=== PATIENT | female | born 1990 | race Caucasian/White ===

== ENCOUNTER 2018-09-18 07:15 | Inpatient (IN) | payer MEDICAID, SELFPAY ==
[2018-09-18 07:58] VITALS: BMI 25.2
[2018-09-18] MEDS: Lactated Ringers 1,000 ML 50 ML IV ×2 (08:15→11:34)
[2018-09-18 08:44] LABS: Hematocrit 37.5 % (37-47); Hemoglobin 12.5 g/dl (12.0-15.0); Mean Corp Hgb Conc 33.3 g/gl (32-36); Mean Corpuscular Hgb 30.1 pg (27.0-32.0); Mean Corpuscular Volume 90.4 fL (81-99); Mean Platelet Vol. 10.8 fl (6.2-12.0); Platelet Count 317 K/mm3 (150-450); RBC Distribution Width SD 45.2 fl (35.1-43.9); Red Blood Count 4.15 M/mm3 (4.2-5.4); White Blood Count 9.6 K/mm3 (4.4-11.0)
[2018-09-18 08:45] LABS: Scan Indicated on CBC? Y/N NO
--- NOTE | 2018-09-18 08:50 | HP.PCM_ITS ---
History Date of Admission: 09/18/18 Final HARPER: 09/25/18 Gestational age: 39 Weeks and 0 Days History of this : This is a 28 year-old, G [], P [], at 38 weeks gestational age. Allergies bupropion [From Wellbutrin] Allergy (Verified 09/18/18 08:03) Hives Home Medications: Home Medications Buprenorphine HCl/Naloxone HCl [Suboxone 8 mg-2 mg Sl Film] 8 mg DAILY 09/18/18 Folic Acid 800 mcg PO DAILY 09/18/18 Smoking Status: Current every day smoker Substance Use Type: Amphetamines Heart Tracin with mod variability, accels TOCO Analysis: irregular History Past Pregnancies: Past Pregnancies Delivery Date Name GA/Weeks Outcome Route Weight Gender Labor Length Anesthesia Delivery Location Provider FOB Labs: See [facility] H[facility]P Physical Exam General: Alert, Oriented x3 Abdomen: Soft, Non Tender, Non-Distended, Gravid SOLAR DESIGNER: Normal external genitalia Estimated gestational size: Appropriate for gestational size Cervix Dilation (cm): 3 - AROM clear fluid Station: -2 Effacement (%): 70 Assessment/Plan This is a 28 year-old at 39 weeks gestational age. Admit to L&D Pain - epidural Polyhydramnios - s/p AROM, on pitocin GBS negative On subutex for h/o heroin abuse
[2018-09-18] MEDS: Oxytocin 30 units/NS 500 ml 30 UNITS/500 ML IV.SOLN IV (09:05)
[2018-09-18 09:15] LABS: Amphetamine Urine VISTA NEGATIVE (<1000 ng/mL); Barbiturate Urine VISTA NEGATIVE (< 200 ng/mL); Benzodiazepine Urine VISTA NEGATIVE (< 200 ng/mL); Cocaine Urine VISTA NEGATIVE (< 300 ng/mL); Ecstacy Urine VISTA NEGATIVE (< 500 ng/mL); Methadone Urine VISTA NEGATIVE (< 300 ng/mL); PCP Urine VISTA NEGATIVE (< 25 ng/mL); THC Urine VISTA NEGATIVE (< 50 ng/mL); Vista UDS pH Range 5
[2018-09-18] MEDS: fentaNYL-bupivacaine (epidural) 100 ML BAG EPIDURAL (11:47)
--- NOTE | 2018-09-18 13:23 | PCM.OB.VAG ---
Vaginal Delivery Maternal Presentation: Medically Indicated Induction Method of Induction: Pitocin, Amniotomy Medical Reason for Induction: - - Polyhydramnios Amniotic Membrane Rupture Type: Artificial Amniotic Fluid Description: Clear Final HARPER: 09/25/18 Gestational age: 39 Weeks and 0 Days Date of Procedure: 09/18/18 Pre-Operative Diagnosis: Polyhydramnios Post-Operative Diagnosis: Same Surgery/ Procedure Performed: Spontaneous Vaginal Delivery Type of Anesthesia: Epidural Description of Procedure: Patient prepped & draped when c/c/+1. She pushed well to deliver head. Head gently guided to allow delivery of anterior & posterior shoulders. No excess traction placed on the head. Body delivered easily & placed on maternal abdomen. 3vc clamped & cut in delayed fashion. Placenta delivered with gentle traction & good uterine tone obtained. Presentation: Vertex, LILIANA Placental Delivery Description: Expressed Placenta Disposition: [facility] Cord Vessel Description: 3 Vessels Cord Entanglement: None Estimated Blood Loss: 250ml Infant A gender: Male (1 minute): 8 (5 minute): 9 Episiotomy Description: None Laceration: None Medications given after delivery: IV Pitocin Complications: None
[2018-09-18] MEDS: Oxytocin 30 units/NS 500 ml 30 UNITS/500 ML IV.SOLN 334 UNITS IV (13:58)
[2018-09-18] MEDS: Oxytocin 30 units/NS 500 ml 30 UNITS/500 ML IV.SOLN 167 UNITS IV (14:28)
[2018-09-18] MEDS: 0.9% Saline Lock 10 ML Syringe IV (15:32)
[2018-09-18 19:45] VITALS: BP 129/79; PULSE 75; RESP 16; TEMP 36.5; O2SAT 100
--- NOTE | 2018-09-18 20:05 | NURSING ---
1953 This RN and JINA Wills verified 4 pills of Subutex in pt own pill container. This container taken to pharmacy at this time by this RN for verification, d/t hospital not carrying this med.
[2018-09-18] MEDS: BUPRENORPHINE HCL 8 MG TAB.SUBL 4 MG SL (21:30)
[2018-09-19 00:05] VITALS: BP 110/60; PULSE 87; RESP 16; TEMP 37.2; O2SAT 98
[2018-09-19] MEDS: Acetaminophen 500 MG Tablet 1000 MG PO (03:52)
[2018-09-19 04:00] VITALS: BP 116/72; PULSE 70; RESP 16; TEMP 37; O2SAT 96
--- NOTE | 2018-09-19 07:52 | PCM.PN.OB ---
Subjective: No complaints - Physical Exam General: Alert, Oriented x3 Abdomen: Soft, Non Tender, Non-Distended - ff mid & below umb Extremities: No Calf Tenderness Vital Signs Temp Pulse Resp BP Pulse Ox 98.6 F 70 16 116/72 96 09/19/18 04:00 09/19/18 04:00 09/19/18 04:00 09/19/18 04:00 09/19/18 04:00 Oxygen Delivery Method Room Air Weight: 142 lb 6.698 oz Body Mass Index (BMI) 25.2 Intake and Output for Last 24 Hours 09/17/18 09/18/18 09/19/18 23:59 23:59 23:59 Intake Total 2816 / 2816 Output Total 2200 / 2200 Balance 616 / 616 Laboratory Tests Past 24 Hrs 09/18/18 09/18/18 09/18/18 08:20 08:20 08:20 WBC 9.6 RBC 4.15 L Hgb 12.5 Hct 37.5 MCV 90.4 MCH 30.1 MCHC 33.3 RDW 14.0 RDW Differential 45.2 H Plt Count 317 MPV 10.8 Urine Opiates Screen NEGATIVE Urine Methadone Screen NEGATIVE Ur Barbiturates Screen NEGATIVE Ur Phencyclidine Scrn NEGATIVE Ur Amphetamines Screen NEGATIVE U Methamphetamin-MDMA NEGATIVE U Benzodiazepines Scrn NEGATIVE Urine Cocaine Screen NEGATIVE U Cannabinoids Screen NEGATIVE Ur Drug Screen Comment Blood Type A NEGATIVE Antibody Screen NEGATIVE Screen Baby's Blood Type Baby's AYAH 09/18/18 16:07 WBC RBC Hgb Hct MCV MCH MCHC RDW RDW Differential Plt Count MPV Urine Opiates Screen Urine Methadone Screen Ur Barbiturates Screen Ur Phencyclidine Scrn Ur Amphetamines Screen U Methamphetamin-MDMA U Benzodiazepines Scrn Urine Cocaine Screen U Cannabinoids Screen Ur Drug Screen Comment Blood Type Antibody Screen Screen NEGATIVE Baby's Blood Type A POSITIVE Baby's AYAH NEGATIVE Medical Necessity - Tobacco Use Smoking Status: Current every day smoker Assessment/Plan PPD#1 Routine care H/o heroin abuse - continue subutex Social work consult
[2018-09-19 08:20] VITALS: BP 107/67; PULSE 79; RESP 16; TEMP 36.9
[2018-09-19] MEDS: BUPRENORPHINE HCL 8 MG TAB.SUBL 4 MG SL ×2 (09:12→20:23)
[2018-09-19 12:01] VITALS: BP 125/84; PULSE 80; RESP 16; TEMP 36.8
[2018-09-19] MEDS: Ibuprofen 600 MG Tablet PO (14:54)
[2018-09-19] MEDS: Senna/Docusate Sodium 1 Tablet PO (14:54)
--- NOTE | 2018-09-19 16:50 | CASEMGMT ---
Addendum entered and electronically signed by Ashanti Hector 09/22/18 11:29: Clarification of documentation - documented below a negative drug screen on 09.12.2018. This should read as 09.18.2018. Michelle Original Note: Social Work Assessment Labor and Delivery Unit Date of Referral: 09/18/2018 Time of Referral: [id number] Referred By: Dr. Serna Date of Intervention: 09/19/2018 Time of Intervention: 1650 Reason for Referral: maternal substance abuse History obtained from: medical records and patient/mother of baby (MOB) Brittnee Jackson Household composition: MOB, reported father of baby (FOB) Kareem Soto, and MOB?s 2 older children. FOB?s mother lives in the home, sleeps in the attic per MOB. MOB reports has lived with FOB for 1.5 years now. MOB reports home situation is safe and adequate. Patient's parent/guardian status: MOB (age 28) and FOB (age 29) have been together for 4 years. MOB denies any abuse by FOB. [place] baby is the first child for MOB and FOB together. FOB reportedly have 3 other children who do come over to visit every other weekend: Stephen is 12, Teresita is 8, and Regina is 6. MOB?s minor Children include (each have different paternity): [place] Chetan Soto, born 09.18.2018 Derik Jackson, born 10.08.2014 Angela Subramanian, born 04.13.2011 Medical History: MOB is G3, P2 to 3 after delivering baby reno Benton. From chart review, care visits appearing to have occurred at 10 (february) to establish care, then at 13 (March), 17, 19, 23, and 35 weeks; gap in care between 23-35 weeks. MOB reports there were a few times that missed some appointments mid . Chart indicates MOB with history of Hepatitis C that has resolved. Baby reno Benton was born at 38 weeks gestation, weighed 7 pounds 3 ounces, ?s 8 and 9. Educational Status: MOB has high school education. No reported issues reading, writing, or learning comprehension. Financial Status: FOB works at [employer] in [place], 7 am to 6 pm. Infant Supplies: MOB reports to have needed supplies including car seat, diapers, wipes, clothing, pack-n-play with bassinet attachment. Childcare/Caregiver(s): MOB is primary caregiver. 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 No reported issues with transportation. Programs/Agencies Involved: MOB reports medical through [facility]. MOB reports plan to get on WIC and agreed to information for [facility]. MOB reports current involvement with a counselor, Vesta, at [facility]. Children Services/Legal Issues: MOB denies legal issues. Denies any history of children services involvement, past or present. Behavioral Health Issues: Mental Health History: MOB with history of depression after of second child. Chart indicates diagnosis of depression in 2012. MOB reports was prescribed Lexapro during this but has not been taking as prescribed as felt this was not helping. MOB denies any history of suicidal thoughts, plans, intent or attempts. No reports of any thoughts of harm to others. Substance Use History: MOB reports an 8-month history of heroin use about 6 years ago. MOB reports Derik?s father influenced MOB, and this is how MOB started to use heroin. Chart indicates history of marijuana, but not in years. MOB reports use of Adderall during this when MOB did not know was , though this does not correlate as MOB had an OB visit at 10 weeks and then next visit at 13 weeks when MOB was positive. MOB reports the Adderall was not prescribed to MOB and that MOB used this due to needing some ?me time,? to be able to stay awake at night so that could have some time to self. MOB reports when MOB tested positive was the last time that MOB had used Adderall. MOB denies use of alcohol, marijuana, heroin, cocaine, meth, or nonprescribed pills other than the Adderall during this . MOB is a positive tobacco smoker during . Prescribed subutex 8mg during . Family History: Chart indicates MOB?s mother, father, and a maternal grandfather with history of alcohol abuse. MOB denies that FOB has any addiction issues. Maternal Treatment History: Reports current involvement with Vesta at [facility] but does not think this person has enough background in substance use, so may be looking for a new counselor. MOB not clear when last time visited with Vesta. MOB reports has been on medication assisted treatment for 6 years now with family practitioner Dr. Ballesteros out of [place]. MOB reports Subutex 8mg daily during this . MOB reports history of another counselor, Taylor, out of [place] that MOB did like, but that this counselor has been very busy. History of seeing Radha at [facility] about 6 years ago, will not go back to this agency due to MOB not liking something that Radha said to MOB when MOB was in active use. Drug Screens: Maternal drug screen positive for amphetamines at 13 weeks on 03.26.2018. MOB retested on 08.26.2018 and 09.12.18, both negative. Baby?s urine drug screen at delivery negative, Subutex screen is positive. Meconium is pending. KARINA: Baby is being scored for KARINA due to Subutex exposure in utero. Scores so far 0-3. Baby to be monitored 5-7 days. Family/Social Stressors: MOB with gap in care during the 3rd trimester. 2nd trimester use of nonprescribed Adderall, for which MOB indicated to use for some me time, not feeling like able to stay awake and have some time to self without use of this substance. Subutex for the last 6 years. MOB reports has been thinking of trying to get off the Subutex, as MOB reports this is also an addiction itself. MOB reports plan to work with Dr. Ballesteros on what to do, maybe look at inpatient to help MOB go off the Subutex. MOB with history of depression, not taking medication as prescribed and recommended; additionally, expressing that not happy with current mental health provider at [facility]. MOB reporting current stress in having to have an extended stay at the hospital for KARINA monitoring. MOB reports need to get home and get back to routine with other children. Support Systems: MOB reports MOB?s mother is a strong support for practical help with the kids and a friend named Sarah. MOB reports FOB is an emotional support. MOB identifies Dr. Ballesteros as supportive. ASSESSMENT: MOB cooperative with social work visit, answered questions, though defensive at the beginning of conversation as evidenced by MOB informing this typewriter ribbon winder that MOB and baby are doing well and will be going home tomorrow, despite this typewriter ribbon winder?s attempts at education on KARINA monitoring protocols. MOB also making comments about people ?judging? MOB for being on the Subutex for so long and comparing [facility]?s protocols to [facility] where Derik was born, that the other hospital let MOB and baby discharge in 2 days when MOB was on subutex at that time. Explored with MOB the comment about being judged by others, and MOB reports that does not feel [facility] staff as judging MOB, that just people in general who do not understand addiction. Addressed with MOB that different hospitals have different protocols and that [facility] is going off evidenced based treatment and knowledge of withdrawal timeframes, of protocols in place for safety and care of baby. As conversation went on MOB became less defensive and appeared to relax as voice tone was less tense, body posture relaxed. MOB?s mood anxious, affect constricted overall. MOB eye contact intense overall but did lessen by the end. By end of conversation MOB accepting of need to have extended stay for baby and expressed understanding that [facility] is addressing baby?s needs. MOB reports that does want to go home to other children but understands why protocols are in place. MOB declined social work offer to review protocols with FOB. MOB reports will do this herself as FOB will likely be mad about baby having to stay. Supportive listening and reflection offered to MOB today. MOB accepting of resources offered, and reports would like a list of mental health providers extending out to [place] as MOB has not tried any counselors in this area. Note, let MOB know of need to call children services. MOB accepting of this information. Depression/Shaken Baby/Safe Sleeping: MOB reports awareness of safe sleeping. Reports appropriate responses about shaken baby prevention, putting baby down and walking away or asking for help. MOB educated to risk for depression, importance of seeking out help and support if symptoms arise. Encouraged MOB to follow up with outpatient treatment providers. Safe Plan of Care for infant related to substance use: MOB with a hard time answering this question, as to how MOB would ensure safe care for children. MOB reports to take Subutex as prescribed. Addressed Adderall usage and MOB reports this was at night when kids were sleeping, just to give MOB some ?me time? so children not impacted. No intent reported by MOB about using Adderall again or any other illicit or nonprescribed substances. MOB planning to look into getting a new mental health provider. May look at getting off the Subutex sometime this year. PLAN: Follow this family while in the hospital. Follow up with MOB on some resources for the community and home going. Make children services due to substance exposed . -VINH Riggins, TEACHERS ASSISTANT
--- NOTE | 2018-09-19 17:25 | CASEMGMT ---
Social Work Labor and Delivery Unit Summary: Spoke with sheet metal installer. Confirmed that baby is to be in the hospital for a minimum of 5 days for observation related to KARINA. Monitoring for Subutex is 5-7 days. Let Quilting Machine Helper know that MOB was initially having a hard time with this timeframe but more accepting by the time that social work assessment was done. Met with MOB to provide some resources and to clarify confirmation of stay with sheet metal installer. MOB met with this automobile and property underwriter outside of the room, as was MOB?s preference not to have conversation in front of FOB. Confirmed with MOB that baby will be here for 5-7 days. MOB reports has talked to MOB?s mother about caring for the children and has already let FOB know about the extended stay, which MOB reports FOB is not happy about. Assessment: Provided MOB with list of community resources for [facility], depression packet and WIC packet including applications. MOB accepting of resources and calm during this automobile and property underwriter?s interactions. No interactions observed by this automobile and property underwriter between MOB and baby today, as initial assessment this with MOB this date occurred outside of the room, MOB had woken FOB up and left FOB in charge of baby. When this automobile and property underwriter returned to room at 1725 MOB, room darkened and MOB met this automobile and property underwriter outside of room. Plan: Continue to follow family. Will be calling children services after the weekend. Will follow up with MOB and provide list of mental health providers. -MILO Riggins, BUILDING APPRAISER
[2018-09-19 17:50] VITALS: BP 119/76; PULSE 68; RESP 16; TEMP 36.7
[2018-09-19 20:20] VITALS: BP 120/76; PULSE 84; RESP 16; TEMP 36.8; O2SAT 99
[2018-09-20 04:00] VITALS: BP 106/58; PULSE 74; RESP 18; TEMP 36.8; O2SAT 96
[2018-09-20 08:05] VITALS: BP 95/53; PULSE 64; RESP 20; TEMP 36.9; O2SAT 96
[2018-09-20] MEDS: BUPRENORPHINE HCL 8 MG TAB.SUBL 4 MG SL ×2 (08:05)
[2018-09-20] MEDS: Senna/Docusate Sodium 1 Tablet PO (10:12)
--- NOTE | 2018-09-20 12:05 | PCM.PN.OB ---
Subjective: Doing well per patient and nursing staff. Ambulating and taking PO without difficulty. Voiding and passing flatus. Denies headache, SOB,increased vaginal bleeding or clots. Pain controlled. without concerns. Baby doing well. Continues Subutex. business services sales representative consulted and has seen patient once. - Physical Exam General: Alert, Oriented x3, Cooperative HEENT: Atraumatic, Normocephalic Lungs: Clear to auscultation, Normal air movement, No rhonchi Cardiovascular: Regular rate, Regular Rhythm, No murmurs Abdomen: - - Fundus firm 2 below U. Extremities: No edema Psych/Mental Status: Normal Affect, Appropriate Vital Signs Temp Pulse Resp BP Pulse Ox 98.5 F 64 20 H 95/53 L 96 09/20/18 08:05 09/20/18 08:05 09/20/18 08:05 09/20/18 08:05 09/20/18 08:05 Oxygen Delivery Method Room Air Weight: 142 lb 6.698 oz Body Mass Index (BMI) 25.2 Intake and Output for Last 24 Hours 09/18/18 09/19/18 09/20/18 23:59 23:59 23:59 Intake Total 2816 / 2816 Output Total 2200 / 2200 Balance 616 / 616 Medical Necessity - Tobacco Use Smoking Status: Current every day smoker Assessment/Plan A:PPD #2 Subutex therapy P: 1) Discharge to hotel status today. Baby remains under observation of SCN for KARINA scoring, doing well at this time. 2) business services sales representative will see patient again on 09/22/18 prior to discharge 3) Planning to wean Subutex under management of physician. 4) Follow up in 2 weeks and 6 weeks for management.
--- NOTE | 2018-09-20 12:10 | PN.OBGYN_ITS ---
Subjective: Doing well per patient and nursing staff. Ambulating and taking PO without difficulty. Voiding and passing flatus. Denies headache, SOB,increased vaginal bleeding or clots. Pain controlled. without concerns. Baby doing well. Continues Subutex. on site services specialist consulted and has seen patient once. - Physical Exam General: Alert, Oriented x3, Cooperative HEENT: Atraumatic, Normocephalic Lungs: Clear to auscultation, Normal air movement, No rhonchi Cardiovascular: Regular rate, Regular Rhythm, No murmurs Abdomen: - - Fundus firm 2 below U. Extremities: No edema Psych/Mental Status: Normal Affect, Appropriate Vital Signs Temp Pulse Resp BP Pulse Ox 98.5 F 64 20 H 95/53 L 96 09/20/18 08:05 09/20/18 08:05 09/20/18 08:05 09/20/18 08:05 09/20/18 08:05 Oxygen Delivery Method Room Air Weight: 142 lb 6.698 oz Body Mass Index (BMI) 25.2 Intake and Output for Last 24 Hours 09/18/18 09/19/18 09/20/18 23:59 23:59 23:59 Intake Total 2816 / 2816 Output Total 2200 / 2200 Balance 616 / 616 Medical Necessity - Tobacco Use Smoking Status: Current every day smoker Assessment/Plan A:PPD #2 Subutex therapy P: 1) Discharge to hotel status today. Baby remains under observation of SCN for KARINA scoring, doing well at this time. 2) on site services specialist will see patient again on 09/22/18 prior to discharge 3) Planning to wean Subutex under management of physician. 4) Follow up in 2 weeks and 6 weeks for management.
--- NOTE | 2018-09-20 12:12 | DCINST_ITS ---
Discharge Diet: No Restrictions Discharge Activity: Return to Normal Activity, May not drive while taking narcotic pain medications., May Shower May resume sexual activity in: 4-6 weeks Weight Bearing Status: Weight bearing as tolerated Call your doctor if your incision/area has: Continuous Slow Oozing, Sudden Increased Bleeding, Increased Pain/ Swelling, Increased Redness, Foul Smelling Discharge Call your doctor if you observe: Fever of 101 or Higher, Coldness, Increased Pain, Inability to urinate, Inability to have a bowel movement, Using more than one pad per hour, Shortness of breath, Dizziness, Chest pain, Increased palpita tions (irregular heartbeat), Calf discomfort, Uncontrolled pain Instructions: After a Vaginal Additional Instructions: If you experience any of the following, contact your healthcare provider. * Bleeding that soaks a pad every hour for 2 hours * Fever 100.4 or higher * Unrelieved incision or abdominal pain * Swelling, redness, discharge or bleeding from your incision or episiotomy site * Your incision begins to separate * Problems urinating (including inability to urinate or burning while urinating). * Visual changes * Severe headache * Flu-like symptoms * Pain or redness in one of both of your breasts * Pain, warmth, tenderness or swelling in your legs, especially the calf area * Frequent nausea and vomiting * Symptoms of depression or anxiety If you experience any of the following, call 911 or go to the nearest Emergency Room. * Chest pain * Problems breathing * Seizure activity * Partial or complete paralysis of a body part, slurred speech, weakness or drooping of the face, or a sudden inability to walk or hold your balance Allergies/Adverse Reactions: Allergies bupropion [From Wellbutrin] Allergy (Verified 09/18/18 08:03) Hives Medications to take at Discharge Buprenorphine HCl 8 mg SL DAILY 09/18/18 Folic Acid 800 mcg PO DAILY 09/18/18 Please Follow Up With: Jose A Serna When: Call to make an appointment with your doctor in 2 weeks and 6 weeks. If you had elevated Blood Pressure or 4th degree laceration you will need to be seen in 2 weeks. Primary Care Physician: Care Physician,No Primary [Primary Care Provider] - Test Results: Test results from this visit will be discussed in further detail at your follow- up appointment, if applicable.
[2018-09-20 14:59] VITALS: BP 102/65; PULSE 86; RESP 16; TEMP 37; O2SAT 97
--- NOTE | 2018-09-23 11:00 | CASEMGMT ---
Social Work Note Labor and Delivery Unit Patient/mother of baby (MOB) was discharged over the weekend but stayed at the hospital for the remainder of baby's hospital stay in order to care for baby. Refer to documentation in baby's chart, linked to this visit number, for details of continued social work interventions during baby's stay. MOB was given community resource information for [facility], mental health resources, and depression information. A referral was made to [facility] Children Services due to substance exposed infant, and MOB aware and accepting of referral. -MILO Riggins, CARDIOVASCULAR OPERATING ROOM NURSE
--- OUTSIDE RECORDS SUMMARY | 2018-11-13 07:03 | XMS RPT_ITS ---
:1990 Author Organization [place] Care Team Providers Name Role Phone Primay Care Physicia, No Primary Care Unavailable Hermilo Weeks Admitting Unavailable Hermilo Weeks Attending Unavailable Hermilo Weeks Referring Unavailable ANIBAL PARRY Referring Unavailable RACQUEL ESCOBEDO Referring Unavailable RACQUEL ESCOBEDO Attending Unavailable ANTIONETTE VIEYRA (CN) Attending Unavailable ALEJANDRO JOHNSON Attending Unavailable NIKO RUIZ Referring Unavailable DC STEVENSON (CN) Attending Unavailable NIKO RUIZ Referring Unavailable NIKO RUIZ Attending Unavailable NIKO RUIZ Attending Unavailable JANE JAUREZ RACQUEL Referring Unavailable DC STEVENSON (CN) Attending Unavailable JANE JUAREZ RACQUEL Referring Unavailable ALEJANDRO JOHNSON Attending Unavailable RACQUEL ESCOBEDO Referring Unavailable Favian Andrade Alfredo Primary Care Unavailable Sokari, Telemate Admitting Unavailable Sokari, Telemate Attending Unavailable Favian Andrade D Primary Care Unavailable Sokari, Telemate Admitting Unavailable Sokari, Telemate Attending Unavailable ANTIONETTE VIEYRA Admitting Unavailable ANTIONETTE VIEYRA Attending Unavailable Favian Andrade D Primary Care Unavailable SELF, SELF Referring Unavailable ANDRADE BALLESTEROS Attending Unavailable SELF, SELF Referring Unavailable STORMRHONDA, ANDRADE D Attending Unavailable SELF, SELF Referring Unavailable STORMRHONDA, ANDRADE West Attending Unavailable SELF, SELF Referring Unavailable ANDRADE BALLESTEROS Attending Unavailable ANDRADE BALLESTEROS Referring Unavailable STORMONT, ANDRADE D Attending Unavailable SELF, SELF Referring Unavailable STORMONT, ANDRADE D Attending Unavailable SELF, SELF Referring Unavailable STORMONT, ANDRADE D Attending Unavailable SELF, SELF Referring Unavailable STORMONT, ANDRADE D Attending Unavailable SELF, SELF Referring Unavailable STORMONT, ANDRADE D Attending Unavailable SELF, SELF Referring Unavailable STORMONT, ANDRADE D Attending Unavailable SELF, SELF Referring Unavailable STORMONT, ANDRADE D Attending Unavailable SELF, SELF Referring Unavailable STORMONT, ANDRADE D Attending Unavailable SELF, SELF Referring Unavailable STORMONT, ANDRADE D Attending Unavailable SELF, SELF Referring Unavailable STORMONT, ANDRADE D Attending Unavailable SELF, SELF Referring Unavailable STORMONT, ANDRADE D Attending Unavailable PROBLEMS PROBLEMS DATE TYPE CONDITION / CODE ATTENDING STATUS SOURCE 10/07/2018 Admitting Medication STORMONT, Active [facility] / [facility] ([place]) [id number]() Repository 09/12/2018 Active 38 weeks gestation NA Active Industry of / [facility] Z3A.38(ICD-10) [place] Repository 04/01/2018 Active Drug use NA Active Industry complicating [facility] , [place] unspecified Repository trimester / O99.320(ICD-10) 04/01/2018 Active Opioid dependence, NA Active Industry uncomplicated / [facility] F11.20(ICD-10) [place] Repository 08/26/2018 Active Supervision of high NA Active Industry risk , [facility] unspecified, third [place] trimester / Repository O09.93(ICD-10) 08/26/2018 Active 35 weeks gestation NA Active Industry of / [facility] Z3A.35(ICD-10) [place] Repository 08/26/2018 Active Viral hepatitis NA Active Industry complicating [facility] , third [place] trimester / Repository O98.413(ICD-10) 08/26/2018 Active Supervision of NA Active Industry with [facility] insufficient [place] care, Repository third trimester / O09.33(ICD-10) 08/26/2018 Active Unknown / [place] Active Industry UNK(Unknown) ANN, Clinic Main RACQUEL [place] Repository 06/16/2018 Admitting Medication Refill / STORMONT, Active [facility] [id number]() [email or web address] ([place]) Repository 12/30/2017 Admitting Major depressive STORMONT, Active [facility] disorder, single [email or web address] ([place]) episode, Repository unspecified / F32.9(ICD-10) 12/30/2017 Admitting Opioid dependence, STORMONT, Active [facility] in remission / [facility] ([place]) F11.21(ICD-10) Repository 12/30/2017 Admitting correction (current) FAVIAN, Active [facility] use of opiate [facility] ([place]) analgesic / Repository Z79.891(ICD-10) 12/04/2017 Admitting Other / 0() FAVIAN, Active [facility] Diagnosis [facility] ([place]) Repository PROCEDURES PROCEDURES No Procedure Records FoundRESULTS RESULTS PROGRESS Observed: 09/23/2018 Status: COMPLETED Source: [place] 2:17 PM [facility] REPOSITORY HNO ID: [id number] Author: Smooth Lockett LPN Service: (none) Author Type: (none) Type: Progress Notes Filed: 09/23/2018 2:23 PM Note Text: Pt delivered via at [facility] on 09/18/[address] Weeks. See OB Outcome note. Spoke with pt to post and pt stated that all is going well, baby is breast feeding and she has no voiced c/o. Pt denies any post depression issues. Post 6 week appt made. Smooth Lockett LPN HOSP Observed: 09/23/2018 Status: COMPLETED Source: [place] 12:00 AM [facility] REPOSITORY Patient Update (WOOB) BRITTNEE CHAU ([id number]) 1990 F Date Time Provider Department 09/23/18 HERMILO WEEKS During your visit today, we recorded the following information about you: Smooth Lockett LPN 09/23/2018 2:23 PM Signed Pt delivered via at [facility] on 09/18/[address] Weeks. See OB Outcome note. Spoke with pt to post and pt stated that all is going well, baby is breast feeding and she has no voiced c/o. Pt denies any post depression issues. Post 6 week appt made. Smooth Lockett LPN Allergies As of Date: 09/23/2018 Noted Allergy Reaction WELLBUTRIN (BUPROPION HCL) 02/27/2018 4 - Hives Date Reviewed: 09/12/2018 Reviewed by: Jacki Beck Ma - Fully Assessed Prescriptions as of 09/23/2018 Sig: ESCITALOPRAM 10 MG TABLET VITAMIN,CALCIUM,MINE* Take 1 tablet by mouth. BUPRENORPHINE HCL 8 MG SUBLIN* Dissolve 8 mg under the tongu* Problem List As Of Date 09/23/2018 Noted Resolved Supervision of other high-risk [O09.8*INVALID FOR*06/12/2011 Low-lying placenta [O44.40] INVALID FOR*03/23/2011 Small for dates affecting management of mother *INVALID FOR*03/23/2011 Poor grth-antepart [O36.5990] INVALID FOR*06/12/2011 General counseling for initiation of other cont*INVALID FOR* HCV (hepatitis C virus) [B19.20] INVALID FOR* complicated by subutex maintenance, a*INVALID FOR* More... History of depression [Z86.59] INVALID FOR* More... Tobacco use during , antepartum [O99.3*INVALID FOR* More... Patient requested diagnostic testing [Z01.89] INVALID FOR* More... BV (bacterial vaginosis) [N76.0, B96.89] INVALID FOR* More... Positive urine drug screen [R82.5] INVALID FOR* More... Polyhydramnios in third trimester [O40.3XX0] INVALID FOR* Encounter Status:Closed by SMOOTH LOCKETT LPN on 09/23/18 DISCHARGE INSTRUCTION Observed: 09/20/2018 Status: F Source: [place] 12:12 PM [facility] REPOSITORY [facility] Medical Records Department [address] [place] [address] Instructions for Home/Discharge Instructions 09/20/18 1210 MR#: [id number] Acct: [id number] Name: BRITTNEE CHAU Rep #: [id number] : 1990 28 From: Dc Stevenson CNM PCP: Care Physician, No Primary Status: ADM IN Discharge Diet: No Restrictions Discharge Activity: Return to Normal Activity, May not drive while taking narcotic pain medications., May Shower May resume sexual activity in: 4-6 weeks Weight Bearing Status: Weight bearing as tolerated Call your doctor if your incision/area has: Continuous Slow Oozing, Sudden Increased Bleeding, Increased Pain/ Swelling, Increased Redness, Foul Smelling Discharge Call your doctor if you observe: Fever of 101 or Higher, Coldness, Increased Pain, Inability to urinate, Inability to have a bowel movement, Using more than one pad per hour, Shortness of breath, Dizziness, Chest pain, Increased palpitations (irregular heartbeat), Calf discomfort, Uncontrolled pain Instructions: After a Vaginal Additional Instructions: If you experience any of the following, contact your healthcare provider. * Bleeding that soaks a pad every hour for 2 hours * Fever 100.4 or higher * Unrelieved incision or abdominal pain * Swelling, redness, discharge or bleeding from your incision or episiotomy site * Your incision begins to separate * Problems urinating (including inability to urinate or burning while urinating). * Visual changes * Severe headache * Flu-like symptoms * Pain or redness in one of both of your breasts * Pain, warmth, tenderness or swelling in your legs, especially the calf area * Frequent nausea and vomiting * Symptoms of depression or anxiety If you experience any of the following, call 911 or go to the nearest Emergency Room. * Chest pain * Problems breathing * Seizure activity * Partial or complete paralysis of a body part, slurred speech, weakness or drooping of the face, or a sudden inability to walk or hold your balance Allergies/Adverse Reactions: Allergies bupropion [From Wellbutrin] Allergy (Verified 09/18/18 08:03) Hives Medications to take at Discharge Buprenorphine HCl 8 mg SL DAILY 09/18/18 Folic Acid 800 mcg PO DAILY 09/18/18 Please Follow Up With: Hermilo Weeks When: Call to make an appointment with your doctor in 2 weeks and 6 weeks. If you had elevated Blood Pressure or 4th degree laceration you will need to be seen in 2 weeks. Primary Care Physician: Care Physician,No Primary [Primary Care Provider] - Test Results: Test results from this visit will be discussed in further detail at your follow-up appointment, if applicable. 09/20/18 1212 <Electronically signed by Dc Stevenson CNM> Date Dc Stevenson CNM CC: No Primary Care Physician RH NEGATIVE MOM Collected: 09/18/2018 Status: F Source: [place] WORK[place] 4:07 PM [facility] REPOSITORY Order Comment: Baby's Full Name suni chau Baby's Bracelet # [id number] Baby's MR # [id number] TYPE CODE TESTS RESULT OUT OF RANGE REFERENCE UNITS LAB B101.0425 A Normal MOM'S ABO NEGATIVE RH LAB B101.0450 Normal MOM'S ABS NEGATIVE LAB B101.0500 NEGATIVE Normal NEGATIVE SCREEN LAB B101.0950 A Normal BABY'S POSITIVE ABO RH LAB B101.1000 NEGATIVE Normal BABY'S NEGATIVE AYAH Performed By: #### B101.0300 #### [facility] [address] [place], [address] RHOGAM Collected: 09/18/2018 Status: F Source: [place] 4:07 PM [facility] REPOSITORY TYPE CODE TESTS RESULT OUT OF REFERENCE UNITS RANGE LAB U100.2500 [id number] TRANSFUSED PRODUCT: Rho(D) Immune Globulin RhoGam COUNT: 1 Performed By: #### U100.2500 #### Non-[facility] - refer to report for specific site OPERATIVE REPORT Observed: 09/18/2018 Status: F Source: [place] 2:12 PM [facility] REPOSITORY [facility] Medical Records Department [address] [place] [address] Operative Report 09/18/18 1323 MR#: [id number] Acct: [id number] Name: BRITTNEE CHAU Rep #: [id number] : 1990 28 From: Hermilo Weeks PCP: Care Physician, No Primary Status: ADM IN Location: [id number] Vaginal Delivery Maternal Presentation: Medically Indicated Induction Method of Induction: Pitocin, Amniotomy Medical Reason for Induction: - - Polyhydramnios Amniotic Membrane Rupture Type: Artificial Amniotic Fluid Description: Clear Final HARPER: 09/25/18 Gestational age: 39 Weeks and 0 Days Date of Procedure: 09/18/18 Pre-Operative Diagnosis: Polyhydramnios Post-Operative Diagnosis: Same Surgery/ Procedure Performed: Spontaneous Vaginal Delivery Type of Anesthesia: Epidural Description of Procedure: Patient prepped AND draped when c/c/+1. She pushed well to deliver head. Head gently guided to allow delivery of anterior AND posterior shoulders. No excess traction placed on the head. Body delivered easily AND placed on maternal abdomen. 3vc clamped AND cut in delayed fashion. Placenta delivered with gentle traction AND good uterine tone obtained. Presentation: Vertex, LILIANA Placental Delivery Description: Expressed Placenta Disposition: [facility] Cord Vessel Description: 3 Vessels Cord Entanglement: None Estimated Blood Loss: 250ml Infant A gender: Male (1 minute): 8 (5 minute): 9 Episiotomy Description: None Laceration: None Medications given after delivery: IV Pitocin Complications: None 09/18/18 1412 <Electronically signed by Hermilo Weeks > Date Hermilo Weeks CC: No Primary Care Physician; Hermilo Weeks Signed HISTORY AND PHYSICAL Observed: 09/18/2018 Status: F Source: [place] EXAM 1:19 PM [facility] REPOSITORY [facility] Medical Records Department [address] [place] [address] History and Physical 09/18/18 0849 MR#: [id number] Acct: [id number] Name: BRITTNEE CHAU Braxton Rep #: [id number] : 1990 28 From: Hermilo Weesk PCP: Care Physician, No Primary Status: ADM IN Location: [id number] History Date of Admission: 09/18/18 Final HARPER: 09/25/18 Gestational age: 39 Weeks and 0 Days History of this : This is a 28 year-old, G [], P [], at 38 weeks gestational age. Allergies bupropion [From Wellbutrin] Allergy (Verified 09/18/18 08:03) Hives Home Medications: Home Medications Buprenorphine HCl/Naloxone HCl [Suboxone 8 mg-2 mg Sl Film] 8 mg DAILY 09/18/18 Folic Acid 800 mcg PO DAILY 09/18/18 Smoking Status: Current every day smoker Substance Use Type: Amphetamines Heart Tracin with mod variability, accels TOCO Analysis: irregular History Past Pregnancies: Past Pregnancies Delivery Name GA/Weeks Outcome Route WeiInfant GeLabor LenAnesthesiDelivery Provider FOB Date [facility]ht [facility] Location Labs: See [facility] H AND P Physical Exam General: Alert, Oriented x3 Abdomen: Soft, Non Tender, Non-Distended, Gravid COSMETIC MAKER: Normal external genitalia Estimated gestational size: Appropriate for gestational size Cervix Dilation (cm): 3 - AROM clear fluid Station: -2 Effacement (%): 70 Assessment/Plan This is a 28 year-old at 39 weeks gestational age. Admit to L AND D Pain - epidural Polyhydramnios - s/p AROM, on pitocin GBS negative On subutex for h/o heroin abuse 09/18/18 1319 <Electronically signed by Hermilo Weeks > Date Hermilo Weeks Cosigner Signature: Date (if applicable) CC: No Primary Care Physician; Hermilo Weeks Signed URINE DRUG SCREEN Collected: 09/18/2018 Status: F Source: [place] ([place]IST[place]) 8:20 AM [facility] REPOSITORY TYPE CODE TESTS RESULT OUT OF RANGE REFERENCE UNITS LAB L505.0075 TO BE Normal CONFIRMED Result Comment: CONFIRMATORY TESTING FOR ALL POSITIVE URINE DRUG SCREEN RESULTS WILL ONLY BE SENT OUT UPON PHYSICIAN ORDER. VISTA Urine Drug Screen methods provide only preliminary analytical test results. A more specific alternate chemical method must be used in order to obtain a confirmed analytical result. Gas chromatography/mass spectrometery (GC/MS) is the preferred confirmatory method. Clinical consideration and professional judgement should be applied to any drug of abuse test result, particularly when preliminary positive results are used. URINE TCA TESTING MUST BE ORDERED SEPARATELY. USE TEST MNEMONIC: [facility] LAB L505.5005 VISTA UDS PH 5 Normal LAB L505.5015 <1000 ng/mL AMPHETAMINES Normal NEGATIVE LAB L505.5025 < 200 ng/mL BARBITIURATES Normal NEGATIVE LAB L505.5035 < 200 ng/mL BENZODIAZIPINE Normal NEGATIVE LAB L505.5045 < 300 ng/mL COCAINE Normal NEGATIVE LAB L505.5055 < 500 ng/mL ECSTACY Normal NEGATIVE LAB L505.5065 < 300 ng/mL METHADONE Normal NEGATIVE LAB L505.5075 < 300 ng/mL OPIATES Normal NEGATIVE LAB L505.5085 < 25 ng/mL PCP Normal NEGATIVE LAB L505.5095 < 50 ng/mL THC Normal NEGATIVE Performed By: #### L505.5000 #### [facility] [address] [place], [address] CBC-COMPLETE BLOOD CNT Collected: 09/18/2018 Status: F Source: [place] NO DIFF 8:20 AM [facility] REPOSITORY TYPE CODE TESTS RESULT OUT OF RANGE REFERENCE UNITS LAB L100.1000 4.4-11.0 K/mm3 Normal WBC 9.6 LAB L100.1200 4.2-5.4 M/mm3 Low RBC 4.15 LAB L100.1300 12.0-15.0 g/dl Normal HGB 12.5 LAB L100.1400 37-47 % Normal HCT 37.5 LAB L100.1500 81-99 fL Normal MCV 90.4 LAB L100.1600 27.0-32.0 pg Normal MCH 30.1 LAB L100.1700 32-36 g/gl Normal MCHC 33.3 LAB L100.1810 11.6-14.6 % Normal RDW CV 14.0 LAB L100.1820 35.1-43.9 fl High RDW SD 45.2 LAB L100.1900 150-450 K/mm3 Normal PLT 317 LAB L100.2000 6.2-12.0 fl Normal MPV 10.8 Performed By: #### L100.0500 #### [facility] [address] [place], [address] TYPE AND SCREEN Collected: 09/18/2018 Status: F Source: [place] 8:20 AM [facility] REPOSITORY Order Comment: Reason for Type AND Screen/Red Cells: ROUTINE TYPE CODE TESTS RESULT OUT OF RANGE REFERENCE UNITS LAB B10.0800 A Normal BLOOD TYPE GEL NEGATIVE LAB B100.4000 Normal Antibody NEGATIVE Screen Performed By: #### B101.7450 #### [facility] [address] [place], [place], [address] HEPATITIS B SURF. AG Collected: 09/12/2018 Status: F Source: [place] 1:21 PM [facility] [place] REPOSITORY TYPE CODE TESTS RESULT OUT OF REFERENCE UNITS RANGE LAB HBSAG Negative Hepatitis B Negative Surf. Ag Performed By: #### HBSAG #### [facility] [address] [place], [place] [address] PROGRESS Observed: 09/04/2018 Status: COMPLETED Source: [place] 5:08 PM [facility] REPOSITORY HNO ID: [id number] Author: Alejandro Johnson Service: (none) Author Type: Physician Type: Progress Notes Filed: 09/04/2018 5:10 PM Note Text: A rodrigues intrauterine The size is AGA Estimated Date of Delivery: 09/25/18 EGA = 37w0d The anatomy appears normal in the areas visualized. Polyhydramnios is noted. There is no evidence of effusions and/ or hydrops. The placenta is fundal. RECOMMENDATIONS: - Self-assessment of kick counts - Follow up ultrasound as clinically indicated - NST - Deliver at 39 weeks PROGRESS Observed: 09/04/2018 Status: COMPLETED Source: [place] 3:03 PM [facility] REPOSITORY HNO ID: [id number] Author: Dc Stevenson Service: (none) Author Type: Manufacturers Representative Type: Progress Notes Filed: 09/04/2018 3:07 PM Note Text: NST SUMMARY PROVIDER ASSESSMENT AND INTERPRETATION Brittnee Chau is a 28 year old female, , who is at 37w0d with an HARPER of 09/25/2018, by Last Menstrual Period dating method. Indications for NST: Polyhydramnios Baseline: 130 Variability: Moderate Accelerations: Present 15 X 15 Decelerations: None Contractions: TOCO: None Interpretation: Reactive SIGNATURE: Dc Stevenson APRN.CNM TOXICOLOGY SCREEN,UR Collected: 08/26/2018 Status: F Source: [place] 1:00 PM [facility] REPOSITORY TYPE CODE TESTS RESULT OUT OF REFERENCE UNITS RANGE LAB UPCP2 Negative Negative Phencyclidin e, Urine Result Comment: Cutoff threshold at 25 ng/mL. LAB UBENZ2 Negative Benzodiazepines, Ur Negative Result Comment: Cutoff threshold at 200 ng/mL. LAB UCOC2 Negative Cocaine, Negative Urine Result Comment: Cutoff threshold at 300 ng/mL. LAB UAMPH2 Negative Amphetamines, Urine Negative Result Comment: Cutoff threshold at 1000 ng/mL. LAB UTHC2 Negative Cannabinoids, Urine Negative Result Comment: Cutoff threshold at 50 ng/mL. LAB UOPI2 Negative Opiates, Negative Urine Result Comment: Cutoff threshold at 300 ng/mL. LAB UBARB2 Negative Barbiturates, Urine Negative Result Comment: Cutoff threshold at 200 ng/mL. LAB UETOH <11 mg/dL <11 Ethanol, Urine LAB UOXYC Negative Oxycodone, Negative Urine Result Comment: Cutoff threshold at 100 ng/mL. Comment: Immunoassay screen only. Cross reactivity with other substances can occur with immunoassay screening. Detection of any drug(s) in this urine toxicology panel is presumptive only. These tests are for med ical purposes only and should not be used for compliance monitoring, legal, or forensic use. Samples should be within normal physiological conditions (e.g. pH). This assay does not include adulteration/specimen validity testing. In clinical settings, confirmatory testing is at the practitioner's discretion [1]. If clinically indicated, confirmation by high specificity, quantitative methodology, which includes adulteration/spec imen validity testing, may be requested on the same specimen through Client Services ([phone]) if contacted within 48 hours of initial testing. [1]Substance Abuse and Mental Health Services Administration (2012). Clinical Drug Testing in Primary Care Technical Assistance Publication Series 32. Department of Health and Human Services, [place], p.10. These tests were developed and their performance characteristics determined by [facility] ([facility]). They have not been cleared or a pproved by the FDA. [facility] is regulated under CLIA as qualified to perform high complexity testing. These tests are used for clinical purposes. They should not be regarded as investigational or for research. Performed By: #### UTOX2 #### [facility] [address] [place] [address] PROGRESS Observed: 08/26/2018 Status: COMPLETED Source: [place] 12:17 PM [facility] REPOSITORY HNO ID: [id number] Author: Racquel Juarez Service: (none) Author Type: Physician Type: Progress Notes Filed: 08/26/2018 12:18 PM Note Text: NST SUMMARY PROVIDER ASSESSMENT AND INTERPRETATION Brittnee Chau is a 28 year old female, , who is at 35w5d with an HARPER of 09/25/2018, by Last Menstrual Period dating method. Indications for NST: Other: subutex use in - limited care Baseline: 135 Variability: Moderate Accelerations: Present 15 X 15 Decelerations: None Contractions: TOCO: None Interpretation: Category I and Reactive SIGNATURE: Racquel Clifton MD CBC Collected: 08/26/2018 Status: F Source: [place] 10:12 AM [facility] REPOSITORY TYPE CODE TESTS RESULT OUT OF REFERENCE UNITS RANGE LAB WBC 3.70-11.00 k/uL WBC 9.77 LAB RBC 3.90-5.20 m/uL Low RBC 3.85 LAB HGB 11.5-15.5 g/dL Hemoglobin 11.6 LAB HCT 36.0-46.0 % Hematocrit 37.3 LAB MCV 80.0-100.0 fL MCV 96.9 LAB MCH 26.0-34.0 pG MCH 30.1 LAB MCHC 30.5-36.0 g/dL MCHC 31.1 LAB RDWCV 11.5-15.0 % RDW-CV 13.7 LAB PLTCT 150-400 k/uL Platelet Count 302 LAB MPV 9.0-12.7 fL MPV 10.2 LAB ABSNUC <0.01 k/uL Absolute nRBC <0.01 Performed By: #### CBC, HBA1C, HCQPCR #### [facility] [address] [place] [id number] HEMOGLOBIN A1C Collected: 08/26/2018 Status: F Source: [place] 10:12 AM [facility] REPOSITORY TYPE CODE TESTS RESULT OUT OF REFERENCE UNITS RANGE LAB HGBA1C 4.3-5.6 % Hemoglobin A1c 5.2 LAB HBA0 mg/dL Est. Average Glucose 103 Result Comment: eAG: (Estimated average glucose) is a calculated value from HgbA1c and is signs and displays sales representative of the average blood glucose level in the last 2-3 month period. Performed By: #### CBC, HBA1C, HCQPCR #### [facility] [address] [place], [place] [address] HEPATITIS C RNA Collected: 08/26/2018 Status: F Source: [place] 10:12 AM [facility] REPOSITORY TYPE CODE TESTS RESULT OUT OF REFERENCE UNITS RANGE LAB HCQPCR IU/mL Hepatitis C RNA HCV RNA not detected by PCR. Result Comment: Reference Range: Negative for HCV RNA The Linear Range of this assay is 15 IU/mL to 100,000,000 IU/mL. Performed By: #### CBC, HBA1C, HCQPCR #### [facility] [address] [place], [place] [address] GROUP B STREP PCR Collected: 08/26/2018 Status: F Source: [place] 9:03 AM [facility] REPOSITORY TYPE CODE TESTS RESULT OUT OF REFERENCE UNITS RANGE LAB GBPCRT Negative for GROUP Group B B STREP PCR Streptococcus by PCR. Performed By: #### GBPCR #### [facility] [address] [place] [address] PROGRESS Observed: 08/26/2018 Status: COMPLETED Source: [place] 8:48 AM [facility] REPOSITORY HNO ID: [id number] Author: Yaneth Perez Ma Service: (none) Author Type: (none) Type: Progress Notes Filed: 08/26/2018 12:18 PM Note Text: Patient identified by name and date of . Brittnee Chau presents today for a vaccination of Tdap. Patient denies an allergy to latex: yes Patient denies a severe (life-threatening) allergy to a previous dose of Tdap, DTP, DTaP, DT or Td vaccine. Yes Patient denies history of epilepsy or neurological problems: Yes Patient is afebrile and denies being moderately or severely ill: Yes Patient denies history of Guillain-Petersburg Syndrome (a severe paralytic illness): Yes Tdap Adacel injection was given without incident. See immunizations for details of immunizations administered today. VIS sheet provided: Yes Provider Ann was present in office at time of injection. Yaneth Van Isaac Ma CBC W/ AUTO DIFF Collected: 06/09/2018 Status: F Source: [facility] 4:39 PM [facility] REPOSITORY TYPE CODE TESTS RESULT OUT OF RANGE REFERENCE UNITS LAB [id number](L 3.6-11.0 E3/mcL OINC) High WBC 13.2 LAB [id number](L 3.90-5.40 E6/mcL OINC) Low RBC 3.58 LAB [id number](L 12.0-16.0 G/DL OINC) Low Hgb 11.3 LAB [id number](L 36.0-48.0 % OINC) Low Hct 33.8 LAB [id number](L 11.5-14.5 % OINC) Normal RDW 13.0 LAB [id number](L 27.0-31.0 pg OINC) High MCH 31.6 LAB [id number](L 33.0-37.0 G/DL OINC) Normal MCHC 33.5 LAB [id number](L 78.0-100.0 fL OINC) Normal MCV 94.6 LAB [id number](L 7.4-11.0 fL OINC) Low MPV 7.1 LAB [id number](L 130-400 E3/mcL OINC) High Platelet 620 Performed By: #### [id number] #### SHEILA Hay[employer]emale[employer] [address] [place] [address] AUTO DIFF Collected: 06/09/2018 Status: F Source: [facility] 4:39 [facility] REPOSITORY Order Comment: Order Added by Discern Expert. TYPE CODE TESTS RESULT OUT OF RANGE REFERENCE UNITS LAB [id number](L 37.0-75.0 % OINC) Normal Neutro Auto 74.8 LAB 54049560(L 20.0-55.0 % OINC) Low Lymph Auto 19.8 LAB 90973018(L 0.0-10.0 % OINC) Normal [facility] Auto 4.8 LAB 67800426(L 0.0-11.0 % OINC) Normal Eos Auto 0.3 LAB [id number](L 0.0-2.0 % OINC) Normal Basophil Auto 0.3 LAB [id number](L 1.4-6.5 E3/mcL OINC) High Neutro 9.9 Absolute LAB 16146835(L 1.2-3.4 E3/mcL OINC) Normal Lymph Absolute 2.6 LAB [id number](L 0.0-0.7 E3/mcL OINC) Normal [facility] Absolute 0.6 LAB 64696220(L 0.0-0.7 E3/mcL OINC) Normal Eos Absolute 0.0 LAB [id number](L 0.0-0.2 E3/mcL OINC) Normal Basophil 0.0 Absolute Performed By: #### [id number] #### SHEILA [employer] [address] [place] [address] ABO/RH ECHO Collected: 06/09/2018 Status: F Source: [facility] 4:39 PM [facility] REPOSITORY TYPE CODE TESTS RESULT OUT OF RANGE REFERENCE UNITS LAB [id number](LO INC) ABO/Rh E A NEG Interp... Performed By: #### [id number] #### SHEILA [facility] Subsection [address] [place] [address] ANTIBODY SCREEN Collected: 06/09/2018 Status: F Source: [facility] CAP... 4:39 PM [facility] REPOSITORY TYPE CODE TESTS RESULT OUT OF RANGE REFERENCE UNITS LAB [id number](L OINC) Normal Screen Negative Interp... Performed By: #### [id number] #### SHEILA [facility] [address] [place] [address] LAB MISCELLANEOUS Collected: 06/09/2018 Status: F Source: [facility] 4:39 PM [facility] REPOSITORY TYPE CODE TESTS RESULT OUT OF RANGE REFERENCE UNITS LAB [id number](LO INC) Normal Test Name hcv quant rna LAB [id number](LO INC) Normal Status See Ref Lab Report Performed By: #### [id number] #### SHEILA Send Outs Subsection [address] [place] [address] HIV-1/2 AG/AB Collected: 06/09/2018 Status: F Source: [facility] 4:39 PM [facility] REPOSITORY TYPE CODE TESTS RESULT OUT OF RANGE REFERENCE UNITS LAB [id number](L Non-Reactive OINC) Normal HIV-1/2 Non-Reactive Ag/Ab Performed By: #### [id number] #### SHEILA Chemistry Manual Subsection [address] [place] [address] RUBELLA IGG LVL Collected: 06/09/2018 Status: F Source: [facility] 4:39 PM [facility] REPOSITORY TYPE CODE TESTS RESULT OUT OF RANGE REFERENCE UNITS LAB [id number](LO [employer]ation INC) al_Unit/mL Normal Rubella IgG 24.5 Lvl (POS) Result Comment: <10IU/ml NON REACTIVE: NOT IMMUNE 10-15 IU/ml RUBELLA SPECIFIC AB PRESENT, EVALUATE FURTHER TO DETERMINE IMMUNE STATUS >15 IU/ml REACTIVE, IMMUNE Performed By: #### [id number] #### SHEILA [employer] [address] [place] [address] RPR Collected: 06/09/2018 Status: F Source: [facility] 4:39 PM [facility] REPOSITORY TYPE CODE TESTS RESULT OUT OF RANGE REFERENCE UNITS LAB [id number](LO Non-Reactive INC) Normal RPR Ql Non-Reactive Performed By: #### [id number] #### SHEILA Chemistry Manual Subsection [address] [place] [address] HEP BS AB Collected: 06/09/2018 Status: F Source: [facility] 4:39 PM [facility] REPOSITORY TYPE CODE TESTS RESULT OUT OF RANGE REFERENCE UNITS LAB [id number](LO INC) Normal Hep Reactive Bs Ab Result Comment: Non Reactive: Inconsistent with immunity, less than 10 mIU/mL Reactive: Consistent with immunity, greater than 9.9 mIU/mL Performed At: [facility] [address] [id number] Leonie Saldana PhD Ph:[phone] Performed By: #### [id number] #### SHEILA Send Outs Subsection [address] [place] [address] PROGRESS Observed: 05/29/2018 Status: COMPLETED Source: [place] 6:43 PM [facility] REPOSITORY O ID: [id number] Author: Antionette Vieyra Service: (none) Author Type: Manufacturers Representative Type: Progress Notes Filed: 05/29/2018 6:44 PM Note Text: CM - S: Brittnee Chau presents with and young children for a routine OB visit at 23w0d. She denies LOF, VB, DFM or cramping/contractions. Patient reports productive cough over the last week. Denies high fever, Tmax = 99-100F. Patient denies ear or sinus pain. Reports that cough is improving. Patient has not taken any OTC medications to help improve her symptoms. Patient reports she is still seeing Dr. Ballesteros for tx and he manages her Subutex and she reports she is getting counseling with him too, but not very often. PDMP check done. Patient has not had NOB labs drawn yet. O: See flow sheet - Afebrile today Gen: A+O x 3, NAD HEENT: Enlarged submandibular lymph nodes, clear sinus drainage noted, slight erythema in tonsillar area noted, no sinus pain to palpation Abd: NT x 4 quadrants, S=D Extremities: No edema in LE A/P: 23w0d IUP. Normal , Possible Viral URI, Hx of Substance Use. RTO 4 Weeks for follow up. Call with LOF, VB, DFM or cramping/contractions. 1. Encounter for supervision of other normal in second trimester -[facility] teaching and PTL precautions reviewed -Patient requests lab requisition be sent to [facility] for NOB bloodwork - URINE OB DIP B/O 2. 23 weeks gestation of -1 GCT at n.v. -Sinus/URI warning signs reviewed - if fever noted patient should contact our office -Plan for repeat U. Tox at n.v. - URINE OB DIP B/O Antionette Vieyra APRN.CNM PROGRESS Observed: 05/06/2018 Status: COMPLETED Source: [place] 9:16 AM [facility] REPOSITORY HNO ID: [id number] Author: Niko Ruiz Service: (none) Author Type: Physician Type: Progress Notes Filed: 05/06/2018 9:16 AM Note Text: Anatomy ultrasound reviewed. No abnormalities identified. Follow up as clinically indicated. Please place copy in ob chart. Niko Ruiz MD PROGRESS Observed: 05/05/2018 Status: COMPLETED Source: [place] 2:27 PM [facility] REPOSITORY HNO ID: [id number] Author: Alejandro Johnson Service: (none) Author Type: Physician Type: Progress Notes Filed: 05/05/2018 2:28 PM Note Text: A rodrigues? fetus in utero with symmetric measurements Adequate growth (AGA). Estimated Date of Delivery: 09/25/18 EGA = 19w4d The anatomy appears normal. There are no evident malformations and /or effusions. No genetic markers are noted. The amniotic fluid volume is within normal limits. The sensitivity of ultrasound in the detection of malformations overall is approximately 35%. RECOMMENDATIONS: - Follow up ultrasound as clinically indicated PROGRESS Observed: 04/01/2018 Status: COMPLETED Source: [place] 9:33 AM [facility] REPOSITORY HNO ID: [id number] Author: Smooth Ricks Psr Service: (none) Author Type: (none) Type: Progress Notes Filed: 04/01/2018 9:33 AM Note Text: pap logged,letter sent. Smooth Ricks Psr TOXICOLOGY SCREEN,UR Collected: 03/26/2018 Status: F Source: [place] 9:25 AM [facility] REPOSITORY TYPE CODE TESTS RESULT OUT OF REFERENCE UNITS RANGE LAB UPCP2 Negative Negative Phencyclidin e, Urine Result Comment: Cutoff threshold at 25 ng/mL. LAB UBENZ2 Negative Benzodiazepines, Ur Negative Result Comment: Cutoff threshold at 200 ng/mL. LAB UCOC2 Negative Cocaine, Negative Urine Result Comment: Cutoff threshold at 300 ng/mL. LAB UAMPH2 Negative Amphetamines, Abnormal Urine Preliminary Alert positive. Result Comment: Cutoff threshold at 1000 ng/mL. LAB UTHC2 Negative Cannabinoids, Urine Negative Result Comment: Cutoff threshold at 50 ng/mL. LAB UOPI2 Negative Opiates, Negative Urine Result Comment: Cutoff threshold at 300 ng/mL. LAB UBARB2 Negative Barbiturates, Urine Negative Result Comment: Cutoff threshold at 200 ng/mL. LAB UETOH <11 mg/dL <11 Ethanol, Urine LAB UOXYC Negative Oxycodone, Negative Urine Result Comment: Cutoff threshold at 100 ng/mL. Comment: Immunoassay screen only. Cross reactivity with other substances can occur with immunoassay screening. Detection of any drug(s) in this urine toxicology panel is presumptive only. These tests are for med ical purposes only and should not be used for compliance monitoring, legal, or forensic use. In clinical settings, confirmatory testing is at the practitioner's discretion [1]. If clinically indicated, confirmation by high specificity, quantitative methodology may be requested on the same speci men through Client Services ([phone]) if contacted within 48 hours of initial testing. [1]Substance Abuse and Mental Health Services Administration (2012). Clinical Drug Testing in Primary Care Technical Assistance Publication Series 32. Department of Health and Human Services, [place], p.10. These tests were developed and their performance characteristics determined by [facility]'s [facility] ([facility]). They have not been cleared or a pproved by the FDA. [facility] is regulated under CLIA as qualified to perform high complexity testing. These tests are used for clinical purposes. They should not be regarded as investigational or for research. Performed By: #### [email or web address] #### [facility] [address] [place], [place] [address] Observed: 03/26/2018 Status: F Source: [place] URINE CULTURE 9:25 AM [facility] REPOSITORY Sp. Request/Comment: - Specimen received in preservative Culture Result - 10,000 - <50,000 CFU/ml Three or more organisms, no one type predominant, suggesting contamination during collection. Recollect if clinically indicated. Performed By: #### URCUL #### [facility] [address], [place] [address] CNPN Observed: 03/26/2018 Status: COMPLETED Source: [place] 12:00 AM [facility] REPOSITORY Telephone (WOOB) BRITTNEE CHAU ([id number]) 1990 F Date Time Provider Department 03/26/18 NIKO RUIZ WOKITTY During your visit today, we recorded the following information about you: Dione Keene RN 03/26/2018 1:03 PM Signed ----- Message from Niko Ruiz sent at 03/26/2018 12:29 PM EDT ----- Let her know + BV. Needs treated, notify pt. MD Dione Mcmullen RN 03/26/2018 1:05 PM Signed Left message for patient to call office. RR- please file medication for BV. Dione Ruiz MD 03/26/2018 1:43 PM Signed thanks. MD Dione Mcmullen RN 03/27/2018 9:39 AM Signed Left message for patient to call office. Also released to [email or web address]. Dione Heath LPN 03/27/2018 10:17 AM Signed Left message to call office. Patient has not reviewed results on [employer] yet. Maisha Ames RN 03/28/2018 1:40 PM Signed 4th message left for patient to call the office with test results. She has not reviewed her results on [employer]. Letter also mailed. Maisha Ames RN Allergies As of Date: 03/26/2018 Noted Allergy Reaction WELLBUTRIN (BUPROPION HCL) 02/27/2018 4 - Hives Date Reviewed: 03/25/2018 Reviewed by: Niko Ruiz - Fully Assessed Reason for Visit: Results [95] Order(s):metroNIDAZOLE (METROGEL) 0.75 % Vaginal GelUse 1 Applicatorful vaginally daily at bedtime for 5 days.Disp: 1 TubeRfl: 0 Prescriptions as of 03/26/2018 Sig: METRONIDAZOLE 0.75 % VAGINAL * Use 1 Applicatorful vaginally* VITAMIN,CALCIUM,MINE* Take 1 tablet by mouth. BUPRENORPHINE HCL 8 MG SUBLIN* Dissolve 8 mg under the tongu* Problem List As Of Date 03/26/2018 Noted Resolved Supervision of other high-risk [O09.8*INVALID FOR*06/12/2011 Low-lying placenta [O44.40] INVALID FOR*03/23/2011 Small for dates affecting management of mother *INVALID FOR*03/23/2011 Poor grth-antepart [O36.5990] INVALID FOR*06/12/2011 General counseling for initiation of other cont*INVALID FOR* HCV (hepatitis C virus) [B19.20] INVALID FOR* complicated by subutex maintenance, a*INVALID FOR* More... History of depression [Z86.59] INVALID FOR* More... Tobacco use during , antepartum [O99.3*INVALID FOR* More... Patient requested diagnostic testing [Z01.89] INVALID FOR* More... BV (bacterial vaginosis) [N76.0, B96.89] INVALID FOR* More... Prescriptions ordered this encounter Disp Refills Start End METRONIDAZOLE 0.75 % VAGINAL GEL 1 Tu* 0 03/26/2018 03/31/2018 Route: VAGINAL Sig: Use 1 Applicatorful vaginally daily at bedtime for 5 days. Letter Text Niko Ruiz M.D. [facility] [address], [place] [address] Brittnee Chau [address] [place] [phone] 03/28/2018 Dear Brittnee, We have been unable to reach you by phone. Please call between 8am and 5pm at your earliest convenience and ask to speak with a nurse regarding results of your culture. Thank you for choosing the [facility]. Sincerely, Niko Ruiz M.D. Encounter Status:Closed by NIKO RUIZ MD on 03/26/18 GC/CHLAMYDIA AMPLIF Collected: 03/25/2018 Status: F Source: [place] 2:45 PM [facility] REPOSITORY TYPE CODE TESTS RESULT OUT OF REFERENCE UNITS RANGE LAB GCCTSR GC/Chlam Amp Cervix Source LAB GCAMPL GC Negative Amplification for Neisseria gonorrhoeae by amplification. LAB CLAMPL Chlamydia Negative Amplif for Chlamydia trachomatis by amplification. Performed By: #### GCCT #### [facility] [address], [place] [address] CYTOLOGY Observed: 03/25/2018 Status: F Source: [place] 2:28 PM [facility] [place] REPOSITORY Specimen originated from [facility] Specimen #: [id number] Submitting Physician: NIKO RUIZ M.D. ([id number]) SPECIMEN SUBMITTED A: CERVICAL, SCREENING, FLUID FINAL DIAGNOSIS A. CERVICAL, SCREENING, FLUID Satisfactory for interpretation. No endocervical component. Negative for intraepithelial lesion or malignancy. Predominance of coccobacilli consistent with shift in vaginal roxanne. This specimen has been analyzed by the ThinPrep Imaging System, an automated imaging and review system, which assists the laboratory in evaluating cells on ThinPrep Pap tests. Following automated imaging, selected dover from every slide are reviewed by a point of care technician. JOHNY Mejía(ASCP) (Electronic Signature) CLINICAL DATA ROUTINE EXAM, HPV Testing: Yes, Reflex HPV for ASCUS Date of Last Menstrual Period: 12/19/2017 Menstrual History: STAINS A: CERVICAL, SCREENING, FLUID THIN PREP COSMETIC MAKER Maisha Hannah M.D., Engineering Group Leader Date of Report: 03/31/2018 Date of Procedure: 03/25/2018 Date of Receipt: 03/27/2018 Submitted by: NIKO RUIZ M.D. ([id number]) Location: [facility] Diagnostic interpretation performed at [facility], [address] [place] [address]. The Pap Smear is a screening test for cervical cancer. False negative results occur with all screening tests, emphasizing the need for rescreening at recommended intervals, and clinical correlation. PROGRESS Observed: 03/25/2018 Status: COMPLETED Source: [place] 1:53 PM [facility] REPOSITORY HNO ID: [id number] Author: Niko Ruiz Service: (none) Author Type: Physician Type: Progress Notes Filed: 03/25/2018 2:50 PM Note Text: INITIAL OB ASSESSMENT OB Provider: Niko Ruiz MD HPI: Brittnee Chau is a 27 year old female here to establish Obstetrical Care. Patient's last menstrual period was 12/19/2017 (approximate). from OB Dating Form. Cycle length: 28-32 days Complaints: fatigue was unplanned but accepted. Obstetric History T2 L2 SAB0 TAB0 Ectopic0 Multiple0 Live Births2 Prior : never History of 4th degree laceration: No Patient's Risk Screening for delivery: History of abnormal pap: No Prior treatment for cervical dysplasia: none. History of STDs: None Tobacco use: Yes Caffeine use: No Drug use: Yes-subutex Alcohol use: No Multivitamin with Folic acid: Yes Occupation: [employer] in [place] Rastafarian or heritage: No Would refuse blood transfusion if medically necessary: No No weight on file for this encounter. Patient BMI over 30? No Marital Status:Co-habitating Partner: Name: Micky Age: 30 Occupation: [employer] in [place] Gender: male History of STDs: None PAST MEDICAL HISTORY Diagnosis Date - Depression - Encounter for insertion or removal of intrauterine contraceptive device 06/12/2011 - fracture nose 2014 - Heroin abuse - Liver disease +Hep C in past - depression PAST SURGICAL HISTORY Procedure Laterality Date - INSERTION OF IUD 06/12/2011 Mirena and removal - PAST SURGICAL HISTORY OF wisdom teeth Current Outpatient Prescriptions on File Prior to Visit: Xzbrvdat-Vd-Dde-Fe-FA ( VITAMIN) tab Take 1 tablet by mouth. buprenorphine SL (SUBUTEX) 8 mg subl Dissolve 8 mg under the tongue twice daily. No current facility-administered medications on file prior to visit. Review of Systems: GENERAL: Negative for: Fever or Chills HEENT: Negative for: Headache, Impaired Vision, Ringing in Ears, Nosebleeds NECK: Negative for: Swelling, Pain, Stiffness RESPIRATORY: Negative for: Cough, Shortness of breath, Wheezing GASTROINTESTINAL: Negative for: Heartburn, Constipation, Diarrhea, Blood in stool, Vomiting MUSCULOSKELETAL: Negative for: Muscle or joint pain, stiffness, Joint swelling NEUROLOGIC/PSYCHIATRIC: Negative for: Weakness, Paralysis, Numbness, Tingling, Tremor, Anxiety, Depression, Memory loss SKIN: Negative for: Rash, Itching GENITOURINARY: Negative for: vaginal itching, vaginal discharge, hematuria or dysuria PHYSICAL EXAM: LMP 12/19/2017 GENERAL: pleasant female in no apparent distress DERMATOLOGY: Normal, without lesions, non-icteric and non-hirsute NECK: Supple, full range of motion, no adenopathy and thyroid normal CHEST: Normal inspiratory effort BREAST: soft, non-tender, symmetric, no dominant mass, normal nipple-areolar complex, no lymphadenopathy and no nipple discharge ABDOMEN: soft, non-tender and no masses NEURO: alert and oriented x3,exam grossly non-focal PELVIS: External genitalia normal without lesions. Perineal body intact. No vaginal or cervical lesions. Cervix closed. Uterus 14 week size. No adnexal masses or tenderness. Clinical Pelvimetry: Pelvimetry clinically assessed as adequate Limited OB ultrasound exam: single intrauterine , positive cardiac activity and EGA is approx 13w 5 day by US ASSESSMENT: 27 year old at 13w5d wks gestational age PLAN: 1) Patient oriented to practice. Discussed nutrition, folic acid supplementation, dietary guidelines, exercise, smoking, alcohol, caffeine, and drug use. Discussed routine OB labs including STD/HIV. Discussed aneuploidy screening options including serum screening and nuchal translucency. Patient declines all aneuploidy screening. CF carrier screening discussed and declined on subutex, d/w her recommendation to stop smoking and continue w/ current treatment facility. D/ wher infant will get KARINA scoring at delivery and chance for prolonged hospitalization. H/o HCV, resolved, rescreen today Off lexapro, doesn't feel it helped. Follow up in 4 weeks or sooner prn. Niko Ruiz MD #: 1, Date: 04/13/11, Sex: Female, Weight: 5 lb 11 oz (2.58 kg), GA: 39w1d, Delivery: Vaginal, Spontaneous Delivery, Apgar1: 8, Apgar5: 9, Living: Living, Comments: SGA #: 2, Date: 10/08/14, Sex: Male, Weight: 8 lb (3.629 kg), GA: 39w5d, Delivery: Vaginal, Spontaneous Delivery, Apgar1: None, Apgar5: None, Living: Living, Comments: Induced, 4 hours from start of induction to delivery #: 3, Date: None, Sex: None, Weight: None, GA: None, Delivery: None, Apgar1: None, Apgar5: None, Living: None, Comments: None SBIRT Brittnee Chau was given the 4's screening tool. Brittnee answered as follows: OB Opioid Screening - Last Recorded (since 06/28/2017) Did any of your parents have a problem with alcohol or other drug use? (!) Yes Does your partner have a problem with alcohol or other drug use? No In the past, have you had difficulties in your life because of alcohol or other drugs, including prescription medications? (!) Yes In the past month have you drunk any alcohol or used other drugs? No Are you taking medication for pain during the either prescribed or not? No Based on the screen and further questions, she is considered at moderate risk due to: High use in the past including recent treatment. Patient offered brief intervention and continues to follow w/ behavioral health/addiction medicine for subutex. . In discussing this issue my medical advice was that Brittnee Chau see specialized treatment. Her readiness to change(0 lowest - 10 highest) was 10. We discusssed her motivation to change based upon this response. Patient agreed that she would: cont. to see her providers and follow with us. Niko Ruiz MD PROGRESS Observed: 02/27/2018 Status: COMPLETED Source: [place] 11:44 AM [facility] REPOSITORY O ID: [id number] Author: Torie Ruiz RN Service: (none) Author Type: (none) Type: Progress Notes Filed: 02/27/2018 11:59 AM Note Text: #: 1, Date: 04/13/11, Sex: Female, Weight: 5 lb 11 oz (2.58 kg), GA: 39w1d, Delivery: Vaginal, Spontaneous Delivery, Apgar1: 8, Apgar5: 9, Living: Living, Comments: SGA #: 2, Date: 10/08/14, Sex: Male, Weight: 8 lb (3.629 kg), GA: 39w5d, Delivery: Vaginal, Spontaneous Delivery, Apgar1: None, Apgar5: None, Living: Living, Comments: Induced, 4 hours from start of induction to delivery #: 3, Date: None, Sex: None, Weight: None, GA: None, Delivery: None, Apgar1: None, Apgar5: None, Living: None, Comments: None CNNURSE Observed: 02/27/2018 Status: COMPLETED Source: [place] 11:00 AM [facility] REPOSITORY Nurse Visit (WOOB) BRITTNEE CAHU ([id number]) 1990 F Date Time Provider Department 02/27/18 11:00 AM [facility] WSIQANA MARTIN During your visit today, we recorded the following information about you: Last Period 12/19/17 Torie Ruiz RN 02/27/2018 11:40 AM Signed SEQUENTIAL SCREENINGS The [facility] offers sequential screenings for women who are interested in screenings for chromosomal abnormalities and certain defects during a . The sequential screen combines ultrasound and blood tests to determine the risk of chromosomal abnormalities, including Down's Syndrome (Trisomy 21) and Trisomy 18, as well as open neural tube defects including spina bifida. Ultrasound examination is performed between 11 weeks and 13 weeks gestational age. Blood tests are drawn after the ultrasound and again later in the between 15 and 21 weeks gestational age. Please let your physician know if you are interested in this testing. It will require an appointment with our cardiovascular technician. This is not an ultrasound performed by a physician in our office during a routine visit. SIGNS AND SYMPTOMS OF LABOR 1. Contractions every 10 minutes or more often 2. Clear, pink, or brownish fluid (water) leaking from vagina 3. Feeling that baby is pushing down, pressure 4. Low, dull backache 5. Cramps that feel like a period 6. Cramps with or without diarrhea If you notice any of the above symptoms, contact our office at [phone] and ask to speak with a nurse. After hours, you can call doctors registry at [phone] OR call [facility] at [phone] and ask to have the doctor phone triage specialist paged. If you consider this an emergency, dial 9-1-1 or go to your nearest emergency department. Cord-Blood Banking Up until recently, the umbilical cord--along with the blood that remained in it after a baby was born and the cord cut--was simply discarded by the hospital. Then, in the late 1980s, researchers discovered that cord blood possessed unusual properties that made it useful in the treatment of patients with some cancers and other illnesses. While the actual process of collecting cord blood is straightforward, many parents are not even aware that this option now exists, much less familiar with all the issues involved. The case for saving your baby's cord blood The blood running back and forth between your baby and the placenta is full of immature cells called stem cells. Unlike embryonic stem cells, which have the ability to develop into any type of body cell, cord-blood stem cells already are locked into a certain, vital function: making all the different components of the blood, such as platelets, white blood cells, and red blood cells-serving, in effect, like bone marrow. When transfused into a patient whose own blood cells have faulty genetic coding or have been destroyed by chemotherapy or other cancer treatments, the cord-blood cells can implant themselves in the bone marrow and generate legions of new, healthy cells. These days, cord-blood transplants most commonly are used in cancer patients when a donor can't be found for a bone-marrow transplant. The treatment is particularly effective in young patients-the [facility] Cord Blood [facility] reports a 70 percent success rate in children, but only 20 to 40 percent in adults. Researchers envision improving those odds and see many future applications as well, such as curing sickle cell disease and other blood-related genetic illnesses. So there is a possibility that your child, or someone else, may need these super-healthy and versatile cells one day. The drawbacks Aside from not knowing about this medical option, the main reason most people do not save their baby's stem cells is cost. In a private blood bank, the initial costs run from $275 to $1,500. Most also charge a yearly storage fee of $50 to $95. The advantage of using a private bank is that your sample is saved for only you to use. An alternative to private banking Public cord-blood townsend are an alternative. These cost no money to use, but your sample is not specifically saved for you. Another person with a more immediate need may use it. If the time should come that you need stem cells, yours may still be available, or you may use donations from other people without charge. You also can direct your sample to go to a relative with an immediate need if the blood type matches. Anyone else needing to use stem cells from a public bank who has not been a donor must pay for it, sometimes tens of thousands of dollars. Will my family benefit from saving stem cells? Right now, situations in which stem cells would be helpful are quite rare. As mentioned earlier, stem-cell transplants are most commonly used for rare genetic conditions and for some types of cancer, including leukemia and lymphoma. And even with these present uses, many questions remain. In cancer treatment, for example, some researchers are concerned about the wisdom of transplanting back into the child the same cells that already showed a propensity to become malignant. Doctors also aren't sure if the number of cells taken at the time of would be enough to treat a full-grown 16-year-old. It is also not completely clear how active the cells would be after years of being stored. The treatment is so new and rare, we just don't have the data yet to resolve these important issues. What do the experts say? The [employer] encourages philanthropic blood banking in public townsend, but only for families with a current or potential need. Blood-bank proponents encourage any kind of banking, pointing out that research is getting closer and closer to many diverse, live-saving applications. How do I decide? Each family must weigh the pros and cons for themselves. Some families say that any cost is worth their peace of mind. Others say that in the face of uncertainty about the effectiveness of the treatment, they will use their resources elsewhere. Some choose the middle ground of donating publicly, knowing that their sample might benefit another family, if not themselves. For more information, ask your doctor or nurse, and be sure to check out our article on the technical aspects of cord-blood banking. Technical Aspects of Cord-Blood Banking If you are interested in storing your baby's umbilical-cord blood because of its possible use in emerging medical treatments, you must make arrangements with a blood bank before your child is born. The collection procedure is quite simple: After delivery of the baby, the umbilical cord is clamped and cut in the usual way. The blood that remains in the umbilical-cord vessels is then collected in sterile containers. The blood may be removed from the cord with a large needle or allowed to flow freely, depending on the company's collection system. The containers may look like large test tubes or like the plastic bags used in a blood bank. It does not cause the mother or the baby any pain to collect the blood, and no blood is taken that the baby needs at the moment. The nurse, military police officer, or physician will then label the samples, check them over with you, and package them for a special pickup arranged with a commercial carrier. When the blood arrives at the blood-bank facility, it is processed and the parents are notified. It is then kept in an advanced storage system for years. How do I know that my sample is safe? Power outages and bankruptcies potentially could threaten any organization, but so far none have been reported. It is to be hoped that the scientists in these townsend would arrange for safe transfer to another facility if the need arose. YOU MUST MAKE ARRANGEMENTS AHEAD OF TIME! Public cord-blood townsend--DONATION: [employer] [phone] [facility], [place], Operated By [facility] Placental Blood Program, [facility] Umbilical Cord Blood Bank, Private cord-blood townsend--SAVING FOR YOUR OWN USE: [employer], (I think this is the least expensive) [employer] [phone] [employer], [phone]) [employer] [place] [facility], [phone] 700-CORD Cells, [phone] [place] [facility], Cord Blood Registry, [phone]) CORDBLOOD [employer], An Internet search may provide you with additional listings. Torie Ruiz RN 02/27/2018 11:59 AM Signed #: 1, Date: [birth year]11, Sex: Female, Weight: 5 lb 11 oz (2.58 kg), GA: 39w1d, Delivery: Vaginal, Spontaneous Delivery, Apgar1: 8, Apgar5: 9, Living: Living, Comments: SGA #: 2, Date: 10/08/14, Sex: Male, Weight: 8 lb (3.629 kg), GA: 39w5d, Delivery: Vaginal, Spontaneous Delivery, Apgar1: None, Apgar5: None, Living: Living, Comments: Induced, 4 hours from start of induction to delivery #: 3, Date: None, Sex: None, Weight: None, GA: None, Delivery: None, Apgar1: None, Apgar5: None, Living: None, Comments: None Referring Provider: SELF [200] Allergies As of Date: 02/27/2018 Noted Allergy Reaction WELLBUTRIN (BUPROPION HCL) 02/27/2018 4 - Hives Date Reviewed: 02/27/2018 Reviewed by: Ruiz, Torie RN - Fully Assessed Reason for Visit: Care [86] Cmt: Pre-New OB Primary Visit Diagnosis:High risk , antepartum [O09.90] Other Visit Diagnoses: complicated by subutex maintenance, antepartum (HCC) [O99.320, F11.20, Z79.891] History of depression [Z86.59] Tobacco use during , antepartum [O99.330] Patient requested diagnostic testing [Z01.89] Prescriptions as of 02/27/2018 Sig: VITAMIN,CALCIUM,MINE* Take 1 tablet by mouth. BUPRENORPHINE HCL 8 MG SUBLIN* Dissolve 8 mg under the [employer]* Problem List As Of Date 02/27/2018 Noted Resolved Supervision of other high-risk [O09.8*INVALID FOR*06/12/2011 Low-lying placenta [O44.40] INVALID FOR*03/23/2011 Small for dates affecting management of mother *INVALID FOR*03/23/2011 Poor grth-antepart [O36.5990] INVALID FOR*06/12/2011 General counseling for initiation of other cont*INVALID FOR* HCV (hepatitis C virus) [B19.20] INVALID FOR* complicated by subutex maintenance, a*INVALID FOR* More... History of depression [Z86.59] INVALID FOR* More... Tobacco use during , antepartum [O99.3*INVALID FOR* More... Patient requested diagnostic testing [Z01.89] INVALID FOR* More... Other instructions from your clinician: SEQUENTIAL SCREENINGS The [facility] offers sequential screenings for women who are interested in screenings for chromosomal abnormalities and certain defects during a . The sequential screen combines ultrasound and blood tests to determine the risk of chromosomal abnormalities, including Down's Syndrome (Trisomy 21) and Trisomy 18, as well as open neural tube defects including spina bifida. Ultrasound examination is performed between 11 weeks and 13 weeks gestational age. Blood tests are drawn after the ultrasound and again later in the between 15 and 21 weeks gestational age. Please let your physician know if you are interested in this testing. It will require an appointment with our cardiovascular technician. This is not an ultrasound performed by a physician in our office during a routine visit. SIGNS AND SYMPTOMS OF LABOR 1. Contractions every 10 minutes or more often 2. Clear, pink, or brownish fluid (water) leaking from vagina 3. Feeling that baby is pushing down, pressure 4. Low, dull backache 5. Cramps that feel like a period 6. Cramps with or without diarrhea If you notice any of the above symptoms, contact our office at [phone] and ask to speak with a nurse. After hours, you can call doctors registry at [phone] OR call [facility] at [phone] and ask to have the doctor phone triage specialist paged. If you consider this an emergency, dial 9-1 or go to your nearest emergency department. Cord-Blood Banking Up until recently, the umbilical cord--along with the blood that remained in it after a baby was born and the cord cut--was simply discarded by the hospital. Then, in the late , researchers discovered that cord blood possessed unusual properties that made it useful in the treatment of patients with some cancers and other illnesses. While the actual process of collecting cord blood is straightforward, many parents are not even aware that this option now exists, much less familiar with all the issues involved. The case for saving your baby's cord blood The blood running back and forth between your baby and the placenta is full of immature cells called stem cells. Unlike embryonic stem cells, which have the ability to develop into any type of body cell, cord-blood stem cells already are locked into a certain, vital function: making all the different components of the blood, such as platelets, white blood cells, and red blood cells-serving, in effect, like bone marrow. When transfused into a patient whose own blood cells have faulty genetic coding or have been destroyed by chemotherapy or other cancer treatments, the cord-blood cells can implant themselves in the bone marrow and generate legions of new, healthy cells. These days, cord-blood transplants most commonly are used in cancer patients when a donor can't be found for a bone-marrow transplant. The treatment is particularly effective in young patients- the [facility] Cord Blood [facility] reports a 70 percent success rate in children, but only 20 to 40 percent in adults. Researchers envision improving those odds and see many future applications as well, such as curing sickle cell disease and other blood-related genetic illnesses. So there is a possibility that your child, or someone else, may need these super-healthy and versatile cells one day. The drawbacks Aside from not knowing about this medical option, the main reason most people do not save their baby's stem cells is cost. In a private blood bank, the initial costs run from $275 to $1,500. Most also charge a yearly storage fee of $50 to $95. The advantage of using a private bank is that your sample is saved for only you to use. An alternative to private banking Public cord-blood townsend are an alternative. These cost no money to use, but your sample is not specifically saved for you. Another person with a more immediate need may use it. If the time should come that you need stem cells, yours may still be available, or you may use donations from other people without charge. You also can direct your sample to go to a relative with an immediate need if the blood type matches. Anyone else needing to use stem cells from a public bank who has not been a donor must pay for it, sometimes tens of thousands of dollars. Will my family benefit from saving stem cells? Right now, situations in which stem cells would be helpful are quite rare. As mentioned earlier, stem-cell transplants are most commonly used for rare genetic conditions and for some types of cancer, including leukemia and lymphoma. And even with these present uses, many questions remain. In cancer treatment, for example, some researchers are concerned about the wisdom of transplanting back into the child the same cells that already showed a propensity to become malignant. Doctors also aren't sure if the number of cells taken at the time of would be enough to treat a full-grown 16-year-old. It is also not completely clear how active the cells would be after years of being stored. The treatment is so new and rare, we just don't have the data yet to resolve these important issues. What do the experts say? The [employer] encourages philanthropic blood banking in public townsend, but only for families with a current or potential need. Blood-bank proponents encourage any kind of banking, pointing out that research is getting closer and closer to many diverse, live-saving applications. How do I decide? Each family must weigh the pros and cons for themselves. Some families say that any cost is worth their peace of mind. Others say that in the face of uncertainty about the effectiveness of the treatment, they will use their resources elsewhere. Some choose the middle ground of donating publicly, knowing that their sample might benefit another family, if not themselves. For more information, ask your doctor or nurse, and be sure to check out our article on the technical aspects of cord-blood banking. Technical Aspects of Cord-Blood Banking If you are interested in storing your baby's umbilical- cord blood because of its possible use in emerging medical treatments, you must make arrangements with a blood bank before your child is born. The collection procedure is quite simple: After delivery of the baby, the umbilical cord is clamped and cut in the usual way. The blood that remains in the umbilical-cord vessels is then collected in sterile containers. The blood may be removed from the cord with a large needle or allowed to flow freely, depending on the company's collection system. The containers may look like large test tubes or like the plastic bags used in a blood bank. It does not cause the mother or the baby any pain to collect the blood, and no blood is taken that the baby needs at the moment. The nurse, military police officer, or physician will then label the samples, check them over with you, and package them for a special pickup arranged with a commercial carrier. When the blood arrives at the blood- bank facility, it is processed and the parents are notified. It is then kept in an advanced storage system for years. How do I know that my sample is safe? Power outages and bankruptcies potentially could threaten any organization, but so far none have been reported. It is to be hoped that the scientists in these townsend would arrange for safe transfer to another facility if the need arose. YOU MUST MAKE ARRANGEMENTS AHEAD OF TIME! Public cord-blood townsend--DONATION: [employer] [phone] [facility], [place], Operated By [facility] Placental Blood [facility], [facility] Umbilical Cord Blood Bank, Private cord-blood townsend--SAVING FOR YOUR OWN USE: [employer], (I think this is the least expensive) [employer] [phone] [employer], [phone]) [employer] [place] Cord Blood [facility], [phone] 700-CORD Cells, [phone] [place] [facility], Cord Blood Registry, [phone]) CORDBLOOD [employer], An Internet search may provide you with additional listings. Disposition: Return in 12 days (on 03/11/2018) for New OB with Dr Ruiz. Follow-up and Disposition History Recorded Encounter Status:Closed by TORIE RUIZ RN on 02/27/18 INFLUENZA A&B AG Collected: 10/24/2017 Status: F Source: [facility] 11:22 PM [facility] REPOSITORY TYPE CODE TESTS RESULT OUT OF REFERENCE UNITS RANGE LAB [id number](L Negative OINC) Normal Influenzae A Ag Negative LAB [id number](L Negative [facility]INC) Normal Influenzae B Ag Negative Performed By: #### [id number] #### SHEILA Misc Micro SubSection , XR CHEST 2 VIEWS Observed: 10/22/2017 Status: F Source: [facility] 8:42 PM [facility] REPOSITORY Exam Date/Time: 10/22/2017 20:53 EST Reason for Exam: Cough Report HISTORY: Body aches, fever, sore throat, and cough. PA AND LATERAL CHEST 10/22/2017 COMPARISON STUDY: PA and lateral chest 12/23/2016. FINDINGS: The cardiomediastinal contours are within normal limits. No dense consolidation, edema, failure, pneumothorax, or acute osseous abnormality suspected. IMPRESSION: No acute cardiopulmonary process. FINAL REPORT Dictated: 10/22/2017 9:45 pm Panchito Linares MD Signed (Electronic Signature): 10/22/2017 9:45 pm Signed by: Panchito Linares MD Technologist: HARISH, ALLERGIES ALLERGIES DATE TYPE / CODE NAME / CODE REACTION SEVERITY SOURCE 09/18/2018 Drug bupropion/[id number] Hives Unknown [place] Allergy/416 611(RXNORM) Community 215674([facility] ED CT) Repository 02/27/2018 DRUG BUPROPION HCL HIVES [facility] INGREDI/[address] [place] 134050(SNOM Repository ED CT) Drug NO KNOWN [facility] Class/97845 ALLERGIES [address] [place] 1003(SNOMED Repository CT) Drug/768713 No Known [facility]) System Repository Drug/871891 Wellbutrin HIVES [facility] 003(SNOMED [facility] CT) System Repository ENCOUNTERS ENCOUNTERS ADMIT/DISCHARGE ACCOUNT NUMBER ADMITTING ENCOUNTER LOCATION SOURCE CLASS 10/07/2018 [id number] Ambulatory [address] [place] [address] ([place]) Repository 09/18/2018/09/20/20 [id number] Micky, Inpatient [place] 18 [facility] ding:WPRoom: Repository [id number]: 1 09/12/2018/09/12/20 [id number] Ambulatory [place] [facility] [address] [place] Repository 09/12/2018/09/15/20 [id number] Ambulatory [place] 18 [facility] [address] [place] Repository 09/09/2018 [id number] Ambulatory Build[facility] ([place]) Repository 09/04/2018/09/05/20 [id number] Ambulatory [address] [place] Repository 09/04/2018/09/05/20 [id number] Ambulatory [address] [place] Repository 08/26/2018 [id number] Ambulatory [facility] ([place]) Repository 08/26/2018/08/26/20 [id number] Ambulatory [address] [place] Repository 08/26/2018/08/27/20 [id number] Ambulatory [address] [place] Repository 08/19/2018 [id number] Ambulatory [facility] ([place] Repository 08/12/2018 [id number] Ambulatory [facility] ([place] Repository 07/30/2018 [id number] Ambulatory [facility] ([place] Rep[place] 07/22/2018 [id number] Ambulatory [facility] ([place] 06/16/2018 [id number] Ambulatory [facility] ([place] Repository 06/09/2018/06/09/20 [id number] JARRELL, Ambulatory [address] ding:[facility] System Repository 06/09/2018 [id number] Ambulatory [address] [place] [address] Repository 05/29/2018/06/12/20 [id number] Ambulatory [address] Repository 05/19/2018 [id number] Ambulatory [facility] ([place] Repository 05/05/2018/05/09/20 [id number] Ambulatory [address] [place] Repository 04/22/2018/04/25/20 [id number] Ambulatory [address] Repository 04/21/2018 [id number] Ambulatory [facility] ([place] Repository 03/25/2018/03/28/20 [id number] Ambulatory [address] Repository 03/24/2018 [id number] Ambulatory [facility] ([place] Repository 02/27/2018/03/03/20 [id number] Ambulatory [address] Repository 02/24/2018 [id number] Ambulatory [facility] ([place] Repository 01/27/2018 [id number] Ambulatory [facility] ([place] Rep[place] 12/30/2017 [id number] Ambulatory [facility] ([place] 12/04/2017 [id number] Ambulatory [facility] ([place] Repository 10/24/2017/10/25/[id number] ding:[facility] EDRoom: [place] Repository 10/22/2017/10/22/[id number] ding:[facility] EDRoom: [place] Repository PAYERS PAYERS ENCOUNTER GUARANTOR PAYER SUBSCRIBER SOURCE 09/18/2018 [facility] Paula [id number] Insurance[facility] Number: [id number] [id number] Repository [address]289Mpc: (419) Date:2018-09-15P [phone] () [address]ATTN: [place] [address]ZM: 09/18/2018 Secondary NOT GIVENUNK Paula Insurance:SELF PAY [facility] Number: Effective Repository Date:2018-09-15 06/09/2018 BRITTNEE [facility] BUFFMYERDOB: Insurance:[facility]: [facility] Number: [id number] [facility] [id number], [place] Date:[place], [place] [id number]: Name:[facility] [phone]: [address] [place] [address] (HP) [phone]: [phone] 10/24/2017 BRITTNEE E Primary BRITTNEE E [facility] BUFFMYERDOB: Insurance:[facility]AREATRIUM HEALTHB: [facility] MCAIDPolicy Number: [id number] System HELTMAN Effective [place] Repository [place], [place] Date:2017-10-24 - [place] [address]Anh: [id number] [id number]: Name:[id number] () [address] [place] [address] ()Tel: [phone]: ([phone] 10/22/2017 BRITTNEE E Primary BRITTNEE E [facility] BUFFMYERDOB: Insurance:CAREATRIUM HEALTHB: [facility] MCAIDPolicy Number: [id number] System HELTMAN Effective [place] Repository [place], [place] Date:2017-10-22 [place] [address]Afr: [id number] [id number]: Name:[id number] (HP) [address] [place] [address] (HP)Tel: [phone]: ([phone]
== END 2018-09-20 15:05 | disposition home or self-care (01) | DRG 560 ==
PROVIDERS: Admitting Provider Obstetrics & Gynecology; Referring Provider Obstetrics & Gynecology; Visit Provider Obstetrics & Gynecology
DX: O40.3XX0 Polyhydramnios, third trimester, not applicable or unspecified (principal); O99.334 Smoking (tobacco) complicating childbirth; F17.200 Nicotine dependence, unspecified, uncomplicated; F11.10 Opioid abuse, uncomplicated; Z3A.39 39 weeks gestation of pregnancy; Z37.0 Single live birth
CPT/HCPCS: 36415; 59025; 59050; 76815; 80307; 85027; 85461; 86850; 86900; 90384; 99218; J7050; J7120; A4216; G0378; J2790

== ENCOUNTER 2018-12-11 13:12 | Day surgery (SDC) | payer MEDICAID, SELFPAY ==
--- NOTE | 2018-12-01 14:16 | HP.PCM_ITS ---
History and Physical Brittnee Jackson is a 28 year old female who presents for sterilization consult for Laparoscopic B/L salpingectomy. Pt has three children and would like permanent sterilization. Pt declines LARC. Pt is currently on Suboxne doing well. Pt denies any CP, SOB, dizziness or fevers. Pt signed Title 10 on 10/30/[address] Jose A Serna present. Pt is scheduled for surgery on 12/11/18 at [facility]. PAST MEDICAL HISTORY Diagnosis Date ? Depression ? Encounter for insertion or removal of intrauterine contraceptive device 06/12/2011 ? fracture nose 2014 ? Heroin abuse (HCC) ? Liver disease +Hep C in past ? depression PAST SURGICAL HISTORY Procedure Laterality Date ? INSERTION OF IUD 06/12/2011 Mirena and removal ? PAST SURGICAL HISTORY OF wisdom teeth FAMILY HISTORY Problem Relation Age of Onset ? Alcohol/Drug Mother ETOH ? Colon Cancer Mother ? Hypertension Mother ? Alcohol/Drug Father ETOH ? other (Sleep Apnea) Maternal Grandmother ? Alcohol/Drug Maternal Grandfather ETOH ? Stroke Maternal Grandfather Social History Marital status: Single Spouse name: Years of education: 12 Number of children: 2 Occupational History Occupation Employer Comment [employer] Social History Main Topics Smoking status: Current Every Day Smoker Packs/day: 1.50 Years: 14.00 Types: Cigarettes Smokeless tobacco: Never Used Alcohol use: No Drug use: No Comment: Has usedheron, marijuana in past Sexual activity: Yes Partners with: Male Current Outpatient Prescriptions: escitalopram oxalate (LEXAPRO) 10 mg tablet Klokfxmt-Ji-Bnn-Fe-FA ( VITAMIN) tab Take 1 tablet by mouth. buprenorphine SL (SUBUTEX) 8 mg subl Dissolve 8 mg under the tongue twice daily. No current facility-administered medications for this visit. Allergies As of Date: 12/01/2018 Allergen Noted Reaction WELLBUTRIN [BUPROPION HCL] 02/27/2018 Hives Fully Assessed 12/01/2018 REVIEW OF SYSTEMS Abdomen: no pain Bladder: no dysuria .. Expanded ROS: GENERAL: Negative for fever Allergies and current medication updated:Yes EXAM: BP 116/70 Ht 5' 3.5 (1.61m) Wt 119 lb (54.0kg) LMP 11/19/2018 BMI 20.75 kg/(m^2). GENERAL: pleasant, female in no apparent distress HEENT: Normocephalic and atraumatic NECK: full range of motion DERMATOLOGY: Normal, without lesions, non-icteric and non-hirsute NEURO: alert and oriented x3,exam grossly non-focal ASSESSMENT AND PLAN: Encounter Diagnosis ICD-10-CM 1. Sterilization consult Z30.09 2. Plan for Laparoscopic Bilateral salpingectomy - on 12/11/18 Pt has been counseled on risks/benefits and alternatives of surgery including but not limited to anesthesia, bleeding, infection, injury to pelvic structures including bowel, bladder, ureters and vessels. Pt wishes to proceed with surgery at this time. Pt declines LARC- pt understands risk for regret. Marizol Clifton MD
--- NOTE | 2018-12-11 13:25 | EKG12_ITS ---
Test Reason : PRE OP Blood Pressure : / mmHG Vent. Rate : 065 BPM Atrial Rate : 065 BPM P-R Int : 128 ms QRS Dur : 086 ms QT Int : 400 ms P-R-T Axes : 056 056 044 degrees QTc Int : 416 ms Normal sinus rhythm Normal ECG Confirmed by MICAH TELLO, SAIDA ([id number]), social media editor FLORENCIA VILLAVICENCIO ([id number]) on 12/17/2018 11:01:30 AM Referred By: Marizol Clifton Confirmed By:SAIDA OBRIEN MD
[2018-12-11 13:32] VITALS: BP 105/68; PULSE 83; RESP 16; TEMP 36.5; O2SAT 100; BMI 21.0
[2018-12-11 13:48] LABS: Internal QC Validated? YES +Cl - CLEAR BKGD; Pregnancy, Urine Negative Negative
[2018-12-11 14:00] LABS: Absolute Lymphocyte Count 1.82 X10^3/ul (0.83-4.51); Basophil# 0.02 X10^3/uL; Basophil% 0.2 % (0-1); Eosinophils% 1.2 % (0-5); Hematocrit 43.9 % (37-47); Hemoglobin 14.1 g/dl (12.0-15.0); Lymphocyte # 1.82 X10^3/ul (4.0); Lymphocyte % 21.5 % (19-41); Mean Corp Hgb Conc 32.1 g/gl (32-36); Mean Corpuscular Hgb 29.3 pg (27.0-32.0); Mean Corpuscular Volume 91.1 fL (81-99); Mean Platelet Vol. 9.8 fl (6.2-12.0); Monocyte# 0.49 X10^3/uL; Monocyte% 5.8 % (0-10); Neutrophil # 6.02 X10^3/uL (2.7-7.7); Neutrophil % 71.1 % (47-70); Platelet Count 281 K/mm3 (150-450); RBC Distribution Width CV 13.7 % (11.6-14.6); RBC Distribution Width SD 45.5 fl (35.1-43.9); Red Blood Count 4.82 M/mm3 (4.2-5.4); White Blood Count 8.5 K/mm3 (4.4-11.0)
[2018-12-11 14:08] LABS: POSITIVE COUNT NO; POSITIVE DIFFERENTIAL NO; POSITIVE MORPHOLOGY NO
[2018-12-11 14:09] LABS: AST(SGOT) 17 U/L (15-37); Alanine Aminotransfer ALT/SGPT 23 U/L (13-56); Alkaline Phosphatase 76 U/L (45-117); Globulin 3.3 g/dL (2.2-4.2); Protein, Total 7.3 g/dL (6.4-8.2)
--- NOTE | 2018-12-11 14:40 | FALS_PTH ---
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 Marizol Clifton, MDDOB: 1990 BED: DIS: 12/11/2018 SPEC #: [id number] RECD: 12/12/18 07:04 STATUS: JAYRO CAREY #: [id number] BISHOP: 12/11/18 14:[address]: Marizol Clifton DEPT: SURGICAL PATHOLOGY RECD BY: Sherley Nagel ENTERED: 12/12/18 09:33 SP TYPE: FALL TUBES OTHR DR: Out of [facility] Doctor Tissues: Fallopian tube Procedures: Surgery Specimen Level II HEADER OPERATION: Laparoscopic, salpingectomy PRE-OP DIAGNOSIS: Sterilization TISSUE SUBMITTED: Bilateral fallopian tubes MICROSCOPIC DIAGNOSIS Bilateral fallopian tubes, salpingectomy: Bilateral fallopian tubes including fimbrial ends, no pathologic diagnosis. Paratubal cyst. ORION:tash 12/16/18 MICROSCOPIC DESCRIPTION Slides are reviewed. GROSS DESCRIPTION Received is one container labeled with the patient's name and designated bilateral fallopian tubes. The specimen consists of two fallopian tubes with an average length of 6 cm and has an average diameter of 0.7 cm. Both fallopian tubes have normal fimbriated ends. One fallopian tube contains a smooth, glistening cyst containing clear fluid adjacent to the fimbriated end. Pulley Maintainer sections of this fallopian tube are submitted in cassette 1. Cassette 2 is the other fallopian tube. / AM:tash 12/12/18 More sections are submitted in two more cassettes, 3 & 4, including fimbrial ends. / SJ:tash 12/15/18 TC:4 CPT: 66657 x2
--- NOTE | 2018-12-11 15:39 | PCM.OPRPT ---
Report of Operation Date of Procedure: 12/11/18 Pre-Operative Diagnosis: desires sterilization Post-Operative Diagnosis: same Surgery/Procedure Performed:: laparoscopic bilateral salpingectomy Description of Surgical Findings:: normal bilateral tubes, left ovary appears as streak ovary and right ovary is normal in appearance Type of Anesthesia:: General Special Medications: 0.5% marcaine Specimen's removed: bilateral fallopian tubes Drains: none Estimated Blood Loss (mL): 5 Fluids Replaced: 600 Description of Procedure: After informed consent was obtained patient was taken to the operating room she was placed in supine position she was given anesthesia. She was then placed in [facility] stirrups and she was prepped and draped in normal sterile fashion. Bladder was drained prior to the start of procedure approximately 200 cc of clear yellow urine was expelled. At this time attention was turned to the vaginal portion where weighted speculum placed at posterior fornix vagina single-tooth tenaculum was used to gently grasp the internal the cervix. uterus was gently sounded to approximately 8cm. Uterine manipulator was placed without difficulty. Legs then placed in parallel with the abdomen the tenaculum and the weighted speculum were removed. 2 towel clamps were placed superior to umbilicus. After Marcaine was injected superior to umbilicus a small incision was made and a 5 mm trocar was placed under direct visualization. CO2 gas was used to insufflate the intra-abdominal cavity. Upon inspection no gross abnormalities uterus tubes and ovaries appeared to be normal however left ovary appeared small- like a streak ovary. At this time then the RLQ and LLQ ports were placed again Marcaine was injected small incision was made a knife and the 5 mm trocars was placed. At this time then tubes were traced back to the fimbriated ends. Ligasure was used to coagulate and ligate along mesosalpinx bilaterally until tubes removed completely. Good hemostasis was appreciated. At this time procedure was deemed complete successful. The gas was desufflated on from the intra-abdominal cavity. The trochars were removed. Skin was closed using 4-0 Monocryl in a subcutaneous fashion. Dermabond glue was placed. Instrument lap and needle counts were correct ?2. The uterine manipulator was removed. Vaginal sweep was performed it was negative. There were no complications anticipated normal postoperative course for this patient. Grafts/Implants Used: none - Complications none - Admit VTE Documentation VTE Present on Admission: Yes VTE Mechan Device Prophylaxis: SCD's VTE Pharm Prophylaxis ordered?: No
[2018-12-11] MEDS: Bupivacaine 0.5% PF 10 ML VIAL (15:40)
--- NOTE | 2018-12-11 15:43 | OP.PCM_ITS ---
Report of Operation Date of Procedure: 12/11/18 Pre-Operative Diagnosis: desires sterilization Post-Operative Diagnosis: same Surgery/Procedure Performed:: laparoscopic bilateral salpingectomy Description of Surgical Findings:: normal bilateral tubes, left ovary appears as streak ovary and right ovary is normal in appearance Type of Anesthesia:: General Special Medications: 0.5% marcaine Specimen's removed: bilateral fallopian tubes Drains: none Estimated Blood Loss (mL): 5 Fluids Replaced: 600 Description of Procedure: After informed consent was obtained patient was taken to the operating room she was placed in supine position she was given anesthesia. She was then placed in the [facility] stirrups and she was prepped and draped in normal sterile fashion. Bladder was drained prior to the start of procedure approximately 200 cc of clear yellow urine was expelled. At this time attention was turned to the vaginal portion where weighted speculum placed at posterior fornix vagina single-tooth tenaculum was used to gently grasp the internal the cervix. uterus was gently sounded to approximately 8cm. Uterine manipulator was placed without difficulty. Legs then placed in parallel with the abdomen the tenaculum and the weighted speculum were removed. 2 towel clamps were placed superior to umbilicus. After Marcaine was injected superior to umbilicus a small incision was made and a 5 mm trocar was placed under direct visualization. CO2 gas was u sed to insufflate the intra-abdominal cavity. Upon inspection no gross abnormalities uterus tubes and ovaries appeared to be normal however left ovary appeared small- like a streak ovary. At this time then the RLQ and LLQ ports were placed again Marcaine was injected small incision was made a knife and the 5 mm trocars was placed. At this time then tubes were traced back to the fimbriated ends. Ligasure was used to coagulate and ligate along mesosalpinx bilaterally until tubes removed completely. Good hemostasis was appreciated. At this time procedure was deemed complete successful. The gas was desufflated on from the intra-abdominal cavity. The trochars were removed. Skin was closed using 4-0 Monocryl in a subcutaneous fashion. Dermabond glue was placed. Instrument lap and needle counts were correct ?2. The uterine manipulator was removed. Vaginal sweep was performed it was negative. There were no complications anticipated normal postoperative course for this patient. Grafts/Implants Used: none - Complications none - Admit VTE Documentation VTE Present on Admission: Yes VTE Mechan Device Prophylaxis: SCD's VTE Pharm Prophylaxis ordered?: No
--- NOTE | 2018-12-11 15:45 | DCINST_ITS ---
Discharge Diet: No Restrictions, - - Increase fluid intake for 48 hours. Discharge Activity: Return to Normal Activity, May Drive - when you are no longer taking narcotic pain medications., May Shower, May Take a Tub Bath - in 7 days., - - Ambulate often the next week after surgery. Additional Activity Instructions:: Nothing in the vagina for the next 5 days. Call your doctor if your incision/area has: Continuous Slow Oozing, Sudden Increased Bleeding, Increased Pain/ Swelling, Increased Redness, Foul Smelling Discharge, Swelling at the incision site Call your doctor if you observe: Fever of 101 or Higher Allergies/Adverse Reactions: Allergies bupropion [From Wellbutrin] Allergy (Verified 12/11/18 13:32) Hives Medications to take at Discharge Buprenorphine HCl 4 mg SL BID@0800,2000 tab.subl 09/20/18 Escitalopram Oxalate [Lexapro] 10 mg PO DAILY 12/04/18 Primary Care Physician: Angela Sabillon,Out of [Primary Care Provider] - Test Results: Test results from this visit will be discussed in further detail at your follow- up appointment, if applicable.
[2018-12-11 15:53] VITALS: BP 105/68; BP 108/63; PULSE 71; RESP 16; TEMP 36.6; O2SAT 98
[2018-12-11 16:00] VITALS: BP 105/68; BP 112/76; PULSE 47; RESP 16; O2SAT 100
[2018-12-11 16:15] VITALS: BP 105/68; BP 123/76; PULSE 48; RESP 16; O2SAT 100
[2018-12-11 16:30] VITALS: BP 105/68; BP 106/75; PULSE 47; RESP 16; TEMP 36.4; O2SAT 100
[2018-12-11 16:50] VITALS: BP 105/68; BP 114/80; PULSE 70; RESP 18; TEMP 36.6; O2SAT 100
== END 2018-12-11 17:06 | disposition home or self-care (01) ==
LOC: SDC 13:13 → AC 13:15
PROVIDERS: Referring Provider Obstetrics & Gynecology; Visit Provider Obstetrics & Gynecology
PROC: (CPT 58661; principal; 2018-12-11 14:25)
DX: Z30.2 Encounter for sterilization (principal); N83.8 Other noninflammatory disorders of ovary, fallopian tube and broad ligament; F17.210 Nicotine dependence, cigarettes, uncomplicated
CPT/HCPCS: 58661; 36415; 80076; 81025; 85025; 88302; 93005; J7120; J2405

== ENCOUNTER 2020-07-21 19:37 | Emergency (ER) | payer MEDICAID, SELFPAY ==
[2020-07-21 19:38] VITALS: BP 139/90; PULSE 90; RESP 18; TEMP 36.3; O2SAT 99; BMI 22.1
--- NOTE | 2020-07-21 20:44 | ED.VIS.GEN ---
History of Present Illness Chief Complaint: Abscess Informant: Patient Onset: Weeks - 2 Narrative: Patient presents with abscesses bilateral armpits. This was noted 2 weeks ago right side started draining however returned a week ago. Left-sided started a week ago 3 different bumps with mild drainage. No fevers. States had one in the past that spontaneously drained. Denies any daily medications. Denies past medical history. No PCP. Allergy to Wellbutrin. Has tolerated Carriere in the past. Prior similar symptoms: Yes Past Medical History - Allergies and Home Meds Allergies/Adverse Reactions: Allergies bupropion [From Wellbutrin] Allergy (Verified 07/21/20 19:41) Hives Primary Care Physician: Care Physician,No Primary [Primary Care Provider] - Past Medical History: None Smoking Status: Current every day smoker Review of Systems General: Denies: Chills, Fever, Sweats Eyes: Denies: Visual changes - bilaterally, Diplopia ENT: Denies: Rhinorrhea, Sore throat Cardiovascular: Denies: Chest pain, Palpitations Respiratory: Denies: Dyspnea, Cough, Dyspnea on exertion Gastrointestinal: Denies: Abdominal pain, Nausea, Vomiting, Diarrhea, Melena, Hematochezia Genitourinary: Denies: Dysuria, Hematuria, Frequency Musculoskeletal: Denies: Back pain, Extremity Pain Skin: Reports: Abscess. Denies: Rash, Wounds Neurological: Denies: Headache, Weakness, Numbness Physical Exam Vital Signs/Narrative: Vital Signs Temp Pulse Resp BP Pulse Ox 07/21/20 19:38 97.3 F L 90 18 139/90 H 99 Inital Vital Signs reviewed: Yes General: Well nourished, Well developed, No Acute Distress Head: Normocephalic, Atraumatic Eyes: Perrl, EOMI ENT: Moist mucous membranes, No rhinorrhea Neck: Supple, Nontender Cardiovascular: Regular rate, Regular rhythm, No murmurs Respiratory: No distress, CTA bilaterally, Chest nontender Abdomen: Soft, Nontender, Nondistended, Normal bowel sounds Back: Nontender, Normal Inspection Extremities: Nontender, No edema Skin: - - Right axillary 3 cm induration with mild erythema tenderness, no active drainage. Left axillary: 3 separate nodules approximate 2 cm in size with mild erythema tender to palpation. No active drainage. No streaking. Neurological: Alert, Oriented x3, Cranial nerves II-XII grossly intact, Normal Strength, Normal Sensation Psychological: Normal affect, Normal Mood Diagnostic/Tx/Re-eval - Medical Decision Making Patient vital signs stable has abscesses both right and left side and right side is greatest however 3 on the left side. Discussed incision and drainage for which patient agreed. Keflex Bactrim Carriere was given. Patient allowed me to drain the right side with copious exudative drainage, however after the right side, she decided she did not want the left-side done. She elects to see how antibiotics will help with the left side. She is discharged with outpatient follow-up. Signs and symptom discussed return. All questions were answered. Procedure note: Verbal consent. I&D. Verbal consent. Normal sterile fashions. Wound with cleansed on the right axillary with alcohol pad, total of 9 cc bupivacaine 0.5% was used. Betadine prep, a cruciate incision was made, copious exudates, loculations broken with hemostat. Flushed with normal saline. Dressing placed by nursing. Patient did have some discomfort however not significant during the procedure. ED Disposition - Plan for ED Patient: Disposition: Home or Assisted Living Diagnosis: Abscess of axilla, left, Abscess of axilla, right Instructions: ED Abscess Antibiotic Treatment Only, ED Abscess Incision And Drainage Prescriptions: Smz/Tmp Ds [Bactrim Ds] 1 tab PO BID #20 tab Transmission Status: Pending to [id number] Cephalexin [Keflex] 500 mg PO Q6 #40 cap Transmission Status: Pending to [id number] Hydrocodone Bitart/Apap 5-325 [Carriere 5MG-325MG] 1 tablet PO Q6H PRN PRN 2 Days #8 tablet PRN Reason: Pain Transmission Status: Received by [id number] Referrals: Dann Cunningham III, MD [[facility]] - 3-5 Days
[2020-07-21] MEDS: Smz/Tmp Ds Tablet 1 TABLET PO (21:26)
[2020-07-21] MEDS: Cephalexin 250 MG Capsule 500 MG PO (21:27)
[2020-07-21] MEDS: HYDROcodone Bitartrate/Apap 5/325 Tablet PO (21:27)
[2020-07-21] MEDS: Bupivacaine Mpf 0.5% 30 ML VIAL INFILT (21:27)
[2020-07-21 23:11] VITALS: BP 128/82; PULSE 87; RESP 16; O2SAT 98
== END 2020-07-21 23:12 | disposition home or self-care (01) ==
PROVIDERS: Emergency Provider Emergency Medicine
DX: L02.412 Cutaneous abscess of left axilla (principal); L02.411 Cutaneous abscess of right axilla; F17.200 Nicotine dependence, unspecified, uncomplicated
CPT/HCPCS: 10060; 99283